=== PATIENT | female | born 1975 | race Hispanic/Latino ===

== ENCOUNTER 2024-05-07 23:19 | Inpatient (IN) | payer SELFPAY ==
[~2024-05-07] VITALS: Ht 160 cm; Wt 83.7 kg
[2024-05-07 23:50] LABS: BASOPHILS # (AUTO) 0.07 K/uL (0.00-0.20); BASOPHILS % (AUTO) 0.9 % (0.0-5.0); EOSINOPHILS # (AUTO) 0.17 K/uL (0.00-0.70); EOSINOPHILS % (AUTO) 2.2 % (0.0-8.0); HEMATOCRIT 39.1 % (36-48); IMMATURE GRANULOCYTE ABSOLUTE 0.03 K/uL (0-1); LYMPHOCYTES # (AUTO) 1.9 K/uL (1.0-4.8); LYMPHOCYTES % (AUTO) 24.4 % (21.0-51.0); MEAN CORPUSCULAR HEMOGLOBIN 27.2 pg (27.0-33.0); MEAN CORPUSCULAR HGB CONC 32.7 g/dL (32.0-36.0); MONOCYTES # (AUTO) 0.4 K/uL (0.1-1.0); MONOCYTES % (AUTO) 5.2 % (3.0-13.0); NEUTROPHILS # (AUTO) 5.3 K/uL (1.8-7.7); NEUTROPHILS % (AUTO) 66.9 % (40.0-77.0); PLATELET COUNT (AUTO) 342 K/uL (130-400); RED BLOOD CELL COUNT(AUTO) 4.71 MIL/uL (4.00-5.50); RED CELL DISTRIBUTION WIDTH 13.4 % (11.0-15.5); WHITE BLOOD COUNT (AUTO) 7.9 K/uL (4.8-10.8)
[2024-05-07 23:53] LABS: APPEARANCE,URINE CLEAR (CLEAR); BILIRUBIN,URINE NEGATIVE (NEGATIVE); COLOR,URINE LIGHT-YELLOW (YELLOW); GLUCOSE, URINE (UA) NEGATIVE (NEGATIVE); KETONES,URINE NEGATIVE (NEGATIVE); LEUKOCYTE ESTERASE ,URINE 25 Leu/uL (NEGATIVE); NITRATE,URINE NEGATIVE (NEGATIVE); OCCULT BLOOD,URINE NEGATIVE (NEGATIVE); PH,URINE 6.5 (5.0-8.0); PROTEIN,URINE NEGATIVE (NEGATIVE); UROBILINOGEN,URINE 0.2 mg/dL (0.2-1.0)
[2024-05-07 23:54] LABS: ADD UA MICROSCOPIC YES
[2024-05-07 23:57] LABS: BACTERIA,URINE FEW /HPF (None Seen); RBC,URINE 0-1 /HPF (0-1); SQUAMOUS EPITHELIAL CELL,UR FEW /HPF (0-2)
[2024-05-08] MEDS: ondanSETRON 4MG INJ IVP ONE (00:01)
[2024-05-08] MEDS: morPHINE 4 MG SYG IVP ONE (00:02)
[2024-05-08] MEDS: LACTATED RINGERS 1000ML 1,000 ML IV ONE (00:03)
[2024-05-08 00:04] LABS: CARBON DIOXIDE 28 mmol/L (21-32); CHLORIDE 103 mmol/L (101-111); CREATININE 0.6 mg/dL (0.5-1.0); GLOMERULAR FILTR. RATE CALC 110 mL/min (>90); GLUCOSE,RANDOM 95 mg/dL (70-105); POTASSIUM 3.9 mmol/L (3.5-5.1); SODIUM SERUM 134 mmol/L (136-145); UREA NITROGEN, BLOOD 5 mg/dL (7-18)
[2024-05-08 00:08] LABS: ALANINE AMINOTRANSFERASE 23 U/L (12-78); ALBUMIN 3.6 g/dL (3.5-5.0); ASPARTATE AMINOTRANSFERASE 22 U/L (10-37); BILIRUBIN,DIRECT < 0.1 mg/dL (0.0-0.3); BILIRUBIN,TOTAL 0.1 mg/dL (0.2-1.0); TOTAL PROTEIN, SERUM 7.3 g/dL (6.0-8.3)
--- NOTE | 2024-05-08 01:37 | ERN ---
General Chief Complaint: Abdominal Pain Stated Complaint: ABDOMINAL PAIN Time Seen by MD: 23:23 History of Present Illness Initial Comments Mrs. Asif is a 49-year-old female significant past medical history of morbid obesity who comes in today with a chief complaint of right upper quadrant pain. Patient reports that she has a history of gallstones. She reports that she had some fat greasy food prior to arrival. Patient reports the pain radiates to her back. Patient reports she has not had an appointment with a general surgeon for evaluation of her issues Allergies: Coded Allergies: No Known Drug Allergies (Unverified Allergy, Unknown, 12/07/23) Past Medical History Past Medical History: No Pertinent History Past Surgical History: Female( History) LMP: Apr 10, 2024 ROS Dictation Constitutional: Negative for fever,chills, and weight loss Eyes: Negative for injury, pain,redness, and discharge ENT: Negative for injury,pain or swelling Cardiovascular: Negative for chest pain, palpitations, and edema Respiratory: Negative for shortness of breath, cough, and wheezing, Abdomen/GI: Positive for abdominal pain Back: Negative for injury and pain : Negative for injury, bleeding and discharge MS/Extremity: Negative for injury and deformity Skin: Negative for rash, and discoloration Neuro: Negative for headache, weakness, numbness, tingling, and seizure Psych: Negative for suicide ideation, homicidal ideation, and hallucinations Physical Exam Physical Exam Dictation General: awake, alert, NAD Head/Face: Normocephalic, atraumatic Eyes: PERRL, EOMI, vision at baseline ENT: oral cavity clear, Neck: Trachea midline, supple, Cardiovascular: RRR, normal S1/S2, No MRGs, no JVD Respiratory: CTAB, no respiratory distress, No rales or wheezes Abdomen: Pain in the right upper quadrant Skin: Warm, dry, normal turgor, no rash MS/Extremity: Pulses equal, no cyanosis Neuro: COAx4, GCS 15, strength 5 Psych: Normal behavior, mood, and affect Results Laboratory and Microbiology Lab and Micro Result Laboratory Tests Test 05/07/24 23:38 White Blood Count 7.9 K/uL (4.8-10.8) Red Blood Count 4.71 MIL/uL (4.00-5.50) Hemoglobin 12.8 g/dL (12.0-16.0) Hematocrit 39.1 % (36-48) Mean Corpuscular Volume 83.0 fL (79-99) Mean Corpuscular Hemoglobin 27.2 pg (27.0-33.0) Mean Corpuscular Hemoglobin Concent 32.7 g/dL (32.0-36.0) Red Cell Distribution Width 13.4 % (11.0-15.5) Platelet Count 342 K/uL (130-400) Mean Platelet Volume 9.4 fL (7.5-10.5) Immature Granulocyte % (Auto) 0.4 % (0-1) Neutrophils (%) (Auto) 66.9 % (40.0-77.0) Lymphocytes (%) (Auto) 24.4 % (21.0-51.0) Monocytes (%) (Auto) 5.2 % (3.0-13.0) Eosinophils (%) (Auto) 2.2 % (0.0-8.0) Basophils (%) (Auto) 0.9 % (0.0-5.0) Neutrophils # (Auto) 5.3 K/uL (1.8-7.7) Lymphocytes # (Auto) 1.9 K/uL (1.0-4.8) Monocytes # (Auto) 0.4 K/uL (0.1-1.0) Eosinophils # (Auto) 0.17 K/uL (0.00-0.70) Basophils # (Auto) 0.07 K/uL (0.00-0.20) Absolute Immature Granulocyte (auto 0.03 K/uL (0-1) Nucleated Red Blood Cells 0.0 % (0.0-0.19) Urine Color LIGHT-YELLOW (YELLOW) Urine Appearance CLEAR (CLEAR) Urine pH 6.5 (5.0-8.0) Urine Specific [place] 1.008 (1.001-1.031) Urine Protein NEGATIVE mg/dL (NEGATIVE) Urine Glucose (UA) NEGATIVE mg/dL (NEGATIVE) Urine Ketones NEGATIVE mg/dL (NEGATIVE) Urine Occult Blood NEGATIVE (NEGATIVE) Urine Nitrate NEGATIVE (NEGATIVE) Urine Bilirubin NEGATIVE mg/dL (NEGATIVE) Urine Urobilinogen 0.2 mg/dL (0.2-1.0) Urine Leukocyte Esterase 25 Opal/uL (NEGATIVE) H Urine RBC 0-1 /HPF (0-1) Urine WBC 6-10 /HPF (0-1) H Urine Squamous Epithelial Cells FEW /HPF (0-2) Urine Bacteria FEW /HPF (None Seen) Urine Hyaline Casts 2-5 /LPF (0-1 /LPF) H Sodium Level 134 mmol/L (136-145) L Potassium Level 3.9 mmol/L (3.5-5.1) Chloride Level 103 mmol/L (101-111) Carbon Dioxide Level 28 mmol/L (21-32) Blood Urea Nitrogen 5 mg/dL (7-18) L Creatinine 0.6 mg/dL (0.5-1.0) Glomerular Filtration Rate Calc 110 mL/min (>90) Random Glucose 95 mg/dL (70-105) Total Calcium 8.8 mg/dL (8.5-10.1) Total Bilirubin 0.1 mg/dL (0.2-1.0) L Direct Bilirubin < 0.1 mg/dL (0.0-0.3) Aspartate Amino Transf (AST/SGOT) 22 U/L (10-37) Alanine Aminotransferase (ALT/SGPT) 23 U/L (12-78) Alkaline Phosphatase 109 U/L (50-136) Total Protein 7.3 g/dL (6.0-8.3) Albumin 3.6 g/dL (3.5-5.0) Amylase Level 63 U/L (25-115) Lipase 49 U/L (16-77) MDM Patient's ultrasound does show moderate suspicion for cholecystitis. Patient will be admitted for further evaluation and care ED Course Orders Procedure Category Date Status Time Vital Signs Per CPOE 05/07/24 Transmitted Routine 23:25 Saline Lock Iv CPOE 05/07/24 Transmitted 23:25 Cbc With Differential LAB 05/07/24 Complete 23:25 Lipase LAB 05/07/24 Complete 23:25 Urinalysis Profile LAB 05/07/24 Complete 23:25 Basic Metabolic Panel LAB 05/07/24 Complete 23:25 Hepatic Function Panel LAB 05/07/24 Complete 23:25 Amylase LAB 05/07/24 Complete 23:55 Us Abdominal Ruq\Ltd US 05/07/24 Taken 23:55 Lactated Ringers PHA 05/08/24 Complete 1000ml (Lactated 00:00 Morphine 4mg Syg PHA 05/08/24 Complete (Morphine 4mg Syg) 00:00 Ondansetron 4mg Inj PHA 05/08/24 Complete (Zofran 4mg Inj) 00:00 Chest 1vw RAD 05/07/24 Taken 23:55 Culture Urine SUZANNE 05/07/24 In Process 23:58 Current Medications Medications (Trade) Dose Ordered Sig/Peace Route PRN Reason Start Time Stop Time Status Last Admin Dose Admin Lactated Ringer's 1,000 ml @ 0 mls/hr ONCE ONCE IV 05/08/24 00:00 05/08/24 00:01 DC 05/08/24 00:03 Morphine Sulfate (morPHINE 4MG SYG) 4 mg ONCE ONCE IVP 05/08/24 00:00 05/08/24 00:01 DC 05/08/24 00:02 Ondansetron HCl (zoFRAN 4MG INJ) 4 mg ONCE ONCE IVP 05/08/24 00:00 05/08/24 00:01 DC 05/08/24 00:01 Vital Signs Date Time Temp Pulse Resp B/P (MAP) Pulse Ox O2 Delivery O2 Flow Rate FiO2 05/08/24 00:12 98.6 72 18 118/71 98 Room Air* 0 21 05/07/24 23:41 98.4 74 18 134/74 98 Room Air* 0 05/07/24 23:20 97.9 78 16 125/83 99 Room Air 0 DX & DISP Disposition: Inpatient Departure Impression: Primary Impression: Acute cholecystitis Condition: Stable Referrals: SELF,REFERRAL (PCP) PILO COELHO MD May 08, 2024 01:37
[2024-05-08] MEDS ORDERED: hydroMORPHone 1 MG INJ IVP PRN (03:30)
[2024-05-08] MEDS ORDERED: acetaMINOPHEN 650 MG SUPPOSITORY RC PRN (03:30)
[2024-05-08] MEDS ORDERED: hydrALAZine 20MG/ML VIAL IV PRN (03:30)
[2024-05-08] MEDS ORDERED: doCUSate SODIUM 100 MG CAP PO PRN (03:30)
[2024-05-08] MEDS ORDERED: morPHINE 2 MG SYG IVP PRN (03:30)
[2024-05-08] MEDS ORDERED: LACTULOSE 20 GM/30 ML UDCUP PO PRN (03:30)
[2024-05-08] MEDS: ZOSYN 3.375GM +NS 50ML IV ONE (03:34)
[2024-05-08] MEDS ORDERED: hydroMORPHone 0.5 MG SYG (0.5MG/0.5ML) IVP PRN (04:00)
[2024-05-08] MEDS ORDERED: ketOROlac 30MG VIAL (30MG/ML) IM PRN (04:00)
--- NOTE | 2024-05-08 04:04 | HP ---
[facility] HISTORY AND PHYSICAL Date of Service: May 08, 2024 Time of Service: 04:04 No PCP ATTENDING/SUPERVISING PHYSICIANS: DR. Chamberlain AND DR. Ho[place] Everett HISTORY OF PRESENT ILLNESS: Mrs. Asif is a 49-year-old female significant past medical history of obesity and cholelithiasis who presented to [facility] ED for evaluation of of right upper quadrant pain onset last night. She reports that she had some fat greasy food prior to arrival and started with severe epigastric pain that radiates to her back. The patient reports that she took chamomile with the room improvement of the pain. Patient reports she has not had an appointment with a general surgeon for evaluation of her issues. CBC within normal limits. Remarkable lab results: Sodium 134. UA: Positive for leuk EST. ED physician reports patient's ultrasound does show moderate suspicion for cholecystitis and would like patient admitted for further evaluation and care. In ED patient received LR1 L bolus, morphine4 mg IV, Zofran4 mg IV, Zosyn 3.375. I went to assess patient at bedside. Patient appeared comfortable and in no distress. Patient reports improved pain with the pain medication that was given. I informed patient of labs, diagnosis, and plan of care. The patient verbalizes understanding and is in agreement with the plan. Plan and assessment are listed below. REVIEW OF SYSTEMS 12-point ROS reviewed with patient. All pertinent positives mentioned above. Otherwise negative, nonpertinent, or noncontributory. PAST MEDICAL HISTORY: Obesity, cholelithiasis PAST SURGICAL HISTORY: PAST SOCIAL HISTORY: Denies alcohol, tobacco, illicit drug use FAMILY HISTORY: Noncontributory Coded Allergies: No Known Drug Allergies (Unverified Allergy, Unknown, 12/07/23) PHYSICAL EXAM GENERAL APPEARANCE: The patient is awake, alert, and oriented, in no acute cardiopulmonary distress. NEUROLOGICAL: Cranial nerves II-XII grossly intact. Motor is 5/5 in bilateral upper and lower extremities proximal to distal. No sensory deficits. HEENT: Face is symmetric. Pupils are equal and reactive. Extraocular movements are intact. NECK: Supple. No JVD. No thyromegaly. No submental, submandibular, pre- /postauricular, occipital or supraclavicular lymphadenopathy. CHEST: Normal chest expansion. No Telemetry. LUNGS: Absence of any rales, rhonchi or any wheezing. CARDIOVASCULAR: Regular. S1 and S2 normal. No appreciable rubs, murmurs or gallops. ABDOMEN: Soft, nontender, and nondistended. There is no rebound, voluntary guarding, or rigidity. : Deferred. No Chavez. EXTREMITIES: Non-edematous and not cyanotic. No clubbing. Good capillary refill. SKIN: No skin breakdown. Vital Sign (Last 24 Hours) 05/08/24 00:12 Temp 98.6 Pulse 72 Resp 18 B/P (MAP) 118/71 Pulse Ox 98 O2 Delivery Room Air* O2 Flow Rate 0 FiO2 21 LABS: Laboratory: Test 05/07/24 23:38 Range/Units White Blood Count 7.9 4.8-10.8 K/uL Red Blood Count 4.71 4.00-5.50 MIL/uL Hemoglobin 12.8 12.0-16.0 g/dL Hematocrit 39.1 36-48 % Mean Corpuscular Volume 83.0 79-99 fL Mean Corpuscular Hemoglobin 27.2 27.0-33.0 pg Mean Corpuscular Hemoglobin Concent 32.7 32.0-36.0 g/dL Red Cell Distribution Width 13.4 11.0-15.5 % Platelet Count 342 130-400 K/uL Mean Platelet Volume 9.4 7.5-10.5 fL Immature Granulocyte % (Auto) 0.4 0-1 % Neutrophils (%) (Auto) 66.9 40.0-77.0 % Lymphocytes (%) (Auto) 24.4 21.0-51.0 % Monocytes (%) (Auto) 5.2 3.0-13.0 % Eosinophils (%) (Auto) 2.2 0.0-8.0 % Basophils (%) (Auto) 0.9 0.0-5.0 % Neutrophils # (Auto) 5.3 1.8-7.7 K/uL Lymphocytes # (Auto) 1.9 1.0-4.8 K/uL Monocytes # (Auto) 0.4 0.1-1.0 K/uL Eosinophils # (Auto) 0.17 0.00-0.70 K/uL Basophils # (Auto) 0.07 0.00-0.20 K/uL Absolute Immature Granulocyte (auto 0.03 0-1 K/uL Nucleated Red Blood Cells 0.0 0.0-0.19 % Urine Color LIGHT-YELLOW YELLOW Urine Appearance CLEAR CLEAR Urine pH 6.5 5.0-8.0 Urine Specific [place] 1.008 1.001-1.031 Urine Protein NEGATIVE NEGATIVE mg/dL Urine Glucose (UA) NEGATIVE NEGATIVE mg/dL Urine Ketones NEGATIVE NEGATIVE mg/dL Urine Occult Blood NEGATIVE NEGATIVE Urine Nitrate NEGATIVE NEGATIVE Urine Bilirubin NEGATIVE NEGATIVE mg/dL Urine Urobilinogen 0.2 0.2-1.0 mg/dL Urine Leukocyte Esterase 25 H NEGATIVE Opal/uL Urine RBC 0-1 0-1 /HPF Urine WBC 6-10 H 0-1 /HPF Urine Squamous Epithelial Cells FEW 0-2 /HPF Urine Bacteria FEW None Seen /HPF Urine Hyaline Casts 2-5 H 0-1 /LPF /LPF Sodium Level 134 L 136-145 mmol/L Potassium Level 3.9 3.5-5.1 mmol/L Chloride Level 103 101-111 mmol/L Carbon Dioxide Level 28 21-32 mmol/L Blood Urea Nitrogen 5 L 7-18 mg/dL Creatinine 0.6 0.5-1.0 mg/dL Glomerular Filtration Rate Calc 110 >90 mL/min Random Glucose 95 70-105 mg/dL Total Calcium 8.8 8.5-10.1 mg/dL Total Bilirubin 0.1 L 0.2-1.0 mg/dL Direct Bilirubin < 0.1 0.0-0.3 mg/dL Aspartate Amino Transf (AST/SGOT) 22 10-37 U/L Alanine Aminotransferase (ALT/SGPT) 23 12-78 U/L Alkaline Phosphatase 109 50-136 U/L Total Protein 7.3 6.0-8.3 g/dL Albumin 3.6 3.5-5.0 g/dL Amylase Level 63 25-115 U/L Lipase 49 16-77 U/L Current Medications Medications (Trade) Dose Ordered Sig/Peace Route PRN Reason Start Time Stop Time Status Last Admin Dose Admin Acetaminophen (TYLenol 325MG TAB) 650 mg Q6H PRN PO FEVER/MILD PAIN LEVEL 1-3 05/08/24 03:30 06/07/24 03:29 Acetaminophen (TYLenol 650MG SUPPOSITORY) 650 mg Q6H PRN RC FEVER / MILD PAIN 1-3 IF NPO 05/08/24 03:30 06/07/24 03:29 Docusate Sodium (COLace 100MG CAP) 100 mg BID PRN PO c 05/08/24 03:30 06/07/24 03:29 Hydralazine HCl (APRESOLine 20MG INJ) 10 mg Q2H PRN IV SBP GREATER THAN 160 05/08/24 03:30 06/07/24 03:29 Hydromorphone HCl (DiLAUDid 0.5MG INJ) 0.5 mg Q4H PRN IVP SEVERE PAIN (7-10) 05/08/24 04:00 05/13/24 03:59 Hydromorphone HCl (DiLAUDid 1MG INJ) 0.5 mg Q4H PRN IVP SEVERE PAIN (7-10) 05/08/24 03:30 05/13/24 03:29 Insulin Human Regular (humuLIN R 100 UNIT/ML 3ML) INSULIN SLIDING SCAL... ACHS SQ 05/08/24 07:30 06/07/24 07:29 Ketorolac Tromethamine (toRADol) 30 mg Q6H PRN IM SEVERE PAIN (7-10) 05/08/24 04:00 05/13/24 03:59 Lactulose (Constulose 20gm/ 30ml Udcup) 20 gm Q6H PRN PO CONSTIPATION 05/08/24 03:30 06/07/24 03:29 Morphine Sulfate (morPHINE 2MG SYG) 2 mg Q4H PRN IVP MODERATE PAIN (4-6) 05/08/24 03:30 05/15/24 03:29 Ondansetron HCl (zoFRAN 4MG INJ) 4 mg Q6H PRN IVP NAUSEA/VOMITING 05/08/24 03:30 06/07/24 03:29 Sodium Chloride 1,000 ml @ 75 mls/hr [id number] IV 05/08/24 03:30 06/07/24 03:29 Temazepam (restORIL 15 MG CAP) 15 mg HS PRN PO INSOMNIA/SLEEP 05/08/24 03:30 06/07/24 03:29 DIAGNOSTICS / RADIOLOGY: [ ] ASSESSMENT: Acute cholecystitis, POA Acute abdominal pain, POA Acute complicated cystitis, POA Hyponatremia, POA Obesity, BMI 28.4 History of cholelithiasis PLAN: Admit to medical/ surgical floor. Consulted Dr. [place], general surgeon for dx of cholecystis. Keep NPO. Gentle IV hydration. Zosyn 3.375 mg IV Q 8hours. P.r.n. medications for: Pain management, nausea, vomiting, constipation, hypertension. Monitor renal and liver function. Monitor electrolytes and treat accordingly. Glucometer checks a.c. and HS with insulin regular sliding scale. Blood pressure checks every 4 hours and as needed. Reconcile home medications once available. DVT and GI prophylaxis: SCDs and Protonix. ADVANCED CARE PLANNING 1. Which of the following were discussed? Hospice Care - No Therapeutic options - Yes Advance Directives - No Other discussions - 2. Discussed with who? Patient 3. Voluntary nature of this service was explained to the patient? Yes 4. Amount of time spent - _ over 35 minute 5. Reviewed by Physician? (if this service was performed by NPP) Yes Patient seen and examined by me. Agree with note by FLOAT REMOVER SEE ADDITIONAL ORDERS PER CHART DISCUSSED WITH NURSING STAFF AVILA LEES May 08, 2024 04:04
[2024-05-08 04:40] VITALS: BP 147/83; PULSE 69; RESP 20; TEMP 99
[2024-05-08] MEDS ORDERED: MAGNESIUM 2GM PREMIX 50ML 50 ML IV PRN (06:30)
[2024-05-08] MEDS ORDERED: PoTASSium chloRIDE 10MEQ/100ML 100 ML IV PRN (06:30)
[2024-05-08] MEDS ORDERED: GLUCAGON 1MG KIT 1 MG ML IM PRN (06:30)
[2024-05-08] MEDS: INSULIN humuLIN R 100 UNIT/ML 3ML SQ SCH (06:56)
[2024-05-08] MEDS: ondanSETRON 4MG INJ IVP PRN (07:03)
[2024-05-08 07:40] VITALS: BP 141/81; PULSE 74; RESP 20; TEMP 97.9; O2SAT 98
--- NOTE | 2024-05-08 08:23 | HMCIMG ---
US ABDOMINAL RUQ\E\LTD HISTORY: Adominal Pain COMPARISON: None FINDINGS: There is mild fatty infiltration of the liver. There are no focal liver masses. The liver is mildly enlarged at 18 cm.There are stones present within the gallbladder. There is no wall thickening or edema. Common duct is normal at 3 mm.. Right kidney is normal with no evidence of mass, hydronephrosis or stone.The pancreas appears normal as well. IMPRESSION: 1. Cholelithiasis without evidence of acute cholecystitis. 2. Mild to moderate fatty infiltration of the liver which is enlarged at 18 cm.
[2024-05-08] MEDS: 0.9%NACL 1000ML 1,000 ML IV SCH (08:46)
[2024-05-08] MEDS: PANTOPrazole 40 MG/VIAL IVP SCH (08:47)
[2024-05-08] MEDS: acetaMINOPHEN 325 MG TAB PO PRN (08:47)
--- NOTE | 2024-05-08 09:30 | HMCIMG ---
CHEST 1VW REASON: SOB COMPARISON: None. FINDINGS: Single view of the chest was obtained. Lungs are clear. Heart size is normal. There is no pulmonary vascular congestion. Mediastinum and bony thorax appear unremarkable. IMPRESSION: 1. Normal single view chest x-ray.
--- NOTE | 2024-05-08 10:34 | PN ---
[facility] PROGRESS NOTE Date of Service: May 08, 2024 Time of Service: 10:16 SUBJECTIVE: This 49-year-old female patient with significant past medical history of obesity and cholelithiasis who presented [place] [facility] [place] evaluation of of right upper quadrant pain onset last night. She reports that she had some fat greasy food prior to arrival and started with severe epigastric pain that radiates to her back. The patient reports that she took chamomile with the room improvement of the pain. Patient reports she has not had an appointment with a general surgeon for evaluation of her issues. CBC within normal limits. Remarkable lab results: Sodium 134. UA: Positive for leuk EST. ED physician reports patient's ultrasound does show moderate suspicion for cholecystitis and would like patient admitted for further evaluation and care. In ED patient received LR1 L bolus, morphine4 mg IV, Zofran4 mg IV, Zosyn 3.375. 05/08/24 The patient is seen and evaluated by me this morning, she is lying comf ortably in bed. She is NPO today. She is complaining of right upper quadrant abdominal pain and nausea. She was given zofran for nausea in the morning. Her vitals are stable. She has been afebrile since admission. CBC, CMP unremarkable and UA is positive for leukocyte esterase. Surgery was consulted and Dr. Rudolph ordered HIDA scan. REVIEW OF SYSTEMS Constitutional: Negative for fever,chills, and weight loss Eyes: Negative for injury, pain,redness, and discharge ENT: Negative for injury,pain or swelling Cardiovascular: Negative for chest pain, palpitations, and edema Respiratory: Negative for shortness of breath, cough, and wheezing, Abdomen/GI: Positive for abdominal pain Back: Negative for injury and pain : Negative for injury, bleeding and discharge MS/Extremity: Negative for injury and deformity Skin: Negative for rash, and discoloration Neuro: Negative for headache, weakness, numbness, tingling, and seizure Psych: Negative for suicide ideation, homicidal ideation, and hallucinations PHYSICAL EXAM GENERAL APPEARANCE: The patient is awake, alert, and oriented, in no acute cardiopulmonary distress. NEUROLOGICAL: Cranial nerves II-XII grossly intact. Motor is 5/5 in bilateral upper and lower extremities proximal to distal. No sensory deficits. HEENT: Face is symmetric. Pupils are equal and reactive. Extraocular movements are intact. NECK: Supple. No JVD. No thyromegaly. No submental, submandibular, pre- /postauricular, occipital or supraclavicular lymphadenopathy. CHEST: Normal chest expansion. No Telemetry. LUNGS: Absence of any rales, rhonchi or any wheezing. CARDIOVASCULAR: Regular. S1 and S2 normal. No appreciable rubs, murmurs or gallops. ABDOMEN: Soft, nontender, and nondistended. There is no rebound, voluntary guarding, or rigidity. : Deferred. No Chavez. EXTREMITIES: Non-edematous and not cyanotic. No clubbing. Good capillary refill. SKIN: No skin breakdown. Vital Signs (last 8hr) Date Time Temp Pulse Resp B/P (MAP) Pulse Ox O2 Delivery O2 Flow Rate FiO2 05/08/24 07:40 97.9 74 20 141/81 98 Room Air 21 05/08/24 07:40 98 Room Air* 0 21 05/08/24 05:00 Room Air* 0 21 05/08/24 04:40 99.0 69 20 147/83 99 Room Air LABS: Laboratory: Test 05/08/24 04:40 05/07/24 23:38 Range/Units Whole Blood Glucose 107 70-110 MG/DL White Blood Count 7.9 4.8-10.8 K/uL Red Blood Count 4.71 4.00-5.50 MIL/uL Hemoglobin 12.8 12.0-16.0 g/dL Hematocrit 39.1 36-48 % Mean Corpuscular Volume 83.0 79-99 fL Mean Corpuscular Hemoglobin 27.2 27.0-33.0 pg Mean Corpuscular Hemoglobin Concent 32.7 32.0-36.0 g/dL Red Cell Distribution Width 13.4 11.0-15.5 % Platelet Count 342 130-400 K/uL Mean Platelet Volume 9.4 7.5-10.5 fL Immature Granulocyte % (Auto) 0.4 0-1 % Neutrophils (%) (Auto) 66.9 40.0-77.0 % Lymphocytes (%) (Auto) 24.4 21.0-51.0 % Monocytes (%) (Auto) 5.2 3.0-13.0 % Eosinophils (%) (Auto) 2.2 0.0-8.0 % Basophils (%) (Auto) 0.9 0.0-5.0 % Neutrophils # (Auto) 5.3 1.8-7.7 K/uL Lymphocytes # (Auto) 1.9 1.0-4.8 K/uL Monocytes # (Auto) 0.4 0.1-1.0 K/uL Eosinophils # (Auto) 0.17 0.00-0.70 K/uL Basophils # (Auto) 0.07 0.00-0.20 K/uL Absolute Immature Granulocyte (auto 0.03 0-1 K/uL Nucleated Red Blood Cells 0.0 0.0-0.19 % Urine Color LIGHT-YELLOW YELLOW Urine Appearance CLEAR CLEAR Urine pH 6.5 5.0-8.0 Urine Specific [place] 1.008 1.001-1.031 Urine Protein NEGATIVE NEGATIVE mg/dL Urine Glucose (UA) NEGATIVE NEGATIVE mg/dL Urine Ketones NEGATIVE NEGATIVE mg/dL Urine Occult Blood NEGATIVE NEGATIVE Urine Nitrate NEGATIVE NEGATIVE Urine Bilirubin NEGATIVE NEGATIVE mg/dL Urine Urobilinogen 0.2 0.2-1.0 mg/dL Urine Leukocyte Esterase 25 H NEGATIVE Opal/uL Urine RBC 0-1 0-1 /HPF Urine WBC 6-10 H 0-1 /HPF Urine Squamous Epithelial Cells FEW 0-2 /HPF Urine Bacteria FEW None Seen /HPF Urine Hyaline Casts 2-5 H 0-1 /LPF /LPF Sodium Level 134 L 136-145 mmol/L Potassium Level 3.9 3.5-5.1 mmol/L Chloride Level 103 101-111 mmol/L Carbon Dioxide Level 28 21-32 mmol/L Blood Urea Nitrogen 5 L 7-18 mg/dL Creatinine 0.6 0.5-1.0 mg/dL Glomerular Filtration Rate Calc 110 >90 mL/min Random Glucose 95 70-105 mg/dL Total Calcium 8.8 8.5-10.1 mg/dL Total Bilirubin 0.1 L 0.2-1.0 mg/dL Direct Bilirubin < 0.1 0.0-0.3 mg/dL Aspartate Amino Transf (AST/SGOT) 22 10-37 U/L Alanine Aminotransferase (ALT/SGPT) 23 12-78 U/L Alkaline Phosphatase 109 50-136 U/L Total Protein 7.3 6.0-8.3 g/dL Albumin 3.6 3.5-5.0 g/dL Amylase Level 63 25-115 U/L Lipase 49 16-77 U/L Current Medications Medications (Trade) Dose Ordered Sig/Peace Route PRN Reason Start Time Stop Time Status Last Admin Dose Admin Acetaminophen (TYLenol 325MG TAB) 650 mg Q6H PRN PO FEVER/MILD PAIN LEVEL 1-3 05/08/24 03:30 06/07/24 03:29 05/08/24 08:47 650 MG Acetaminophen (TYLenol 650MG SUPPOSITORY) 650 mg Q6H PRN RC FEVER / MILD PAIN 1-3 IF NPO 05/08/24 03:30 06/07/24 03:29 Dextrose (D50w) 50 ml AD PRN IV HYPOGLYCEMIA PROTOCOL 05/08/24 06:30 06/07/24 06:29 Docusate Sodium (COLace 100MG CAP) 100 mg BID PRN PO c 05/08/24 03:30 06/07/24 03:29 Glucagon (Glucagon 1mg Kit) 1 mg AD PRN IM HYPOGLYCEMIA PROTOCOL 05/08/24 06:30 06/07/24 06:29 Hydralazine HCl (APRESOLine 20MG INJ) 10 mg Q2H PRN IV SBP GREATER THAN 160 05/08/24 03:30 06/07/24 03:29 Hydromorphone HCl (DiLAUDid 0.5MG INJ) 0.5 mg Q4H PRN IVP SEVERE PAIN (7-10) 05/08/24 04:00 05/13/24 03:59 Hydromorphone HCl (DiLAUDid 1MG INJ) 0.5 mg Q4H PRN IVP SEVERE PAIN (7-10) 05/08/24 03:30 05/13/24 03:29 Insulin Human Regular (humuLIN R 100 UNIT/ML 3ML) INSULIN SLIDING SCAL... ACHS SQ 05/08/24 07:30 06/07/24 07:29 Ketorolac Tromethamine (toRADol) 30 mg Q6H PRN IM SEVERE PAIN (7-10) 05/08/24 04:00 05/13/24 03:59 Lactulose (Constulose 20gm/ 30ml Udcup) 20 gm Q6H PRN PO CONSTIPATION 05/08/24 03:30 06/07/24 03:29 Magnesium Sulfate 50 ml @ 0 mls/hr PROTOCOL PRN IV MAGNESIUM PROTOCOL 05/08/24 06:30 06/07/24 06:29 Morphine Sulfate (morPHINE 2MG SYG) 2 mg Q4H PRN IVP MODERATE PAIN (4-6) 05/08/24 03:30 05/15/24 03:29 Ondansetron HCl (zoFRAN 4MG INJ) 4 mg Q6H PRN IVP NAUSEA/VOMITING 05/08/24 03:30 06/07/24 03:29 05/08/24 07:03 4 MG Pantoprazole Sodium (PROTonix 40MG INJ) 40 mg BID IVP 05/08/24 09:00 06/07/24 08:59 05/08/24 08:47 40 MG Piperacillin Sod/ Tazobactam Sod (Zosyn 3.375gm+NS 50ml) 3.375 gm Q8H IVPB 05/08/24 11:00 05/18/24 10:59 Potassium Chloride 100 ml @ 100 mls/hr AD PRN IV POTASSIUM PROTOCOL 05/08/24 06:30 06/07/24 06:29 Sodium Chloride 1,000 ml @ 75 mls/hr [id number] IV 05/08/24 03:30 06/07/24 03:29 05/08/24 08:46 75 MLS/HR Sodium Chloride (NS 50ml) 50 ml AD IV 05/08/24 11:00 05/08/24 06:07 DC Temazepam (restORIL 15 MG CAP) 15 mg HS PRN PO INSOMNIA/SLEEP 05/08/24 03:30 06/07/24 03:29 DIAGNOSTICS / RADIOLOGY: [place] [address] IMAGING REPORT Signed PATIENT: WANG RAMOS MR#: [id number] : 1975 SEX: F AGE: 49 LOCATION: 4DH ORDER 56 STATUS: ADM IN REPORT#: [id number] SERVICE 54 REASON: SOB ORDERING PHYSICIAN: PILO COELHO MD PROCEDURE: CXR1VW - CHEST 1VW CHEST 1VW REASON: SOB COMPARISON: None. FINDINGS: Single view of the chest was obtained. Lungs are clear. Heart size is normal. There is no pulmonary vascular congestion. Mediastinum and bony thorax appear unremarkable. IMPRESSION: 1. Normal single view chest x-ray. DICTATED BY: JOSELIN QUACH MD DATE: 05/08/24927 ELECTRONICALLY SIGNED BY: JOSELIN QUACH MD DATE: 05/08/24929 [facility] [address] [place], [place] [id number] IMAGING REPORT Signed PATIENT: WANG RAMOS MR#: [id number] : 1975 SEX: F AGE: 49 LOCATION: 4DH ORDER 56 STATUS: ADM IN [facility] REPORT#: [id number] SERVICE 54 REASON: Adominal Pain ORDERING PHYSICIAN: PILO COELHO MD PROCEDURE: [id number] - US ABDOMINAL RUQ\LTD US ABDOMINAL RUQ\E\LTD HISTORY: Adominal Pain COMPARISON: None FINDINGS: There is mild fatty infiltration of the liver. There are no focal liver masses. The liver is mildly enlarged at 18 cm.There are stones present within the gallbladder. There is no wall thickening or edema. Common duct is normal at 3 mm.. Right kidney is normal with no evidence of mass, hydronephrosis or stone.The pancreas appears normal as well. IMPRESSION: 1. Cholelithiasis without evidence of acute cholecystitis. 2. Mild to moderate fatty infiltration of the liver which is enlarged at 18 cm. DICTATED BY: JOSELIN QUACH MD DATE: 05/08/24817 ELECTRONICALLY SIGNED BY: JOSELIN QUACH MD DATE: 05/08/24822 ASSESSMENT: Acute cholecystitis, POA Acute abdominal pain, POA Acute complicated cystitis, POA Hyponatremia, improve Obesity, BMI 28.4 History of cholelithiasis PLAN: Continue to monitor patient on medical/surgical floor. Acute cholecystitis, POA Acute abdominal pain, POA Patient to remain NPO. Surgeon Dr. Rudolph is consulted and ordered HIDA scan. Continue 0.9% NaCl @ 75 ml/hrs. Abdominal US showed multiple gallstones in gallbladder. Continue Zosyn 3.375 mg IV Q 8hours. Glucometer checks a.c. and HS with insulin regular sliding scale. P.r.n. medications for: Pain management, nausea, vomiting, constipation, hypertension. Glucometer checks a.c. and HS with insulin regular sliding scale. Blood pressure checks every 4 hours and as needed. Reconcile home medications once available. DVT and GI prophylaxis: SCDs and Protonix. ATTESTATION BY PHYSICIAN I have seen and examined the patient. I reviewed the documentation, medical decision making, and treatment plan as noted by the resident provider above. I agree with the findings and plan of care. Citlalli Everett MD, KRUPALI P MD May 08, 2024 10:34
[2024-05-08] MEDS ORDERED: 0.9%NACL 50ML IV SCH (11:00)
[2024-05-08 11:46] VITALS: BP 99/61; PULSE 88; RESP 20; TEMP 98.3
[2024-05-08] MEDS: ZOSYN 3.375GM +NS 50ML IVPB SCH (12:06)
--- NOTE | 2024-05-08 16:47 | CONS ---
GENERAL SURGERY CONSULTATION NOTE DATE OF CONSULTATION: May 08, 2024 TIME OF CONSULTATION: 16:47 CONSULTING SERVICE: Azalea Bruno MD REQUESTING PHYSICAIN: [ ] REASON FOR CONSULTATION: [ ] Abdominal pain HISTORY OF PRESENT ILLNESS: [ ] 49-year-old lady who presented with abdominal pain Pain started yesterday with nausea and bloatedness No diarrhea or constipation She has had similar episode in the past PAST MEDICAL HISTORY: [ ] Hypertension PAST SURGICAL HISTORY: [ ] Non FAMILY HISTORY: [ ] Positive for diabetes and hypertension SOCIAL HISTORY: [ ] No smoking No alcohol Current Medications Medications (Trade) Dose Ordered Sig/Peace Route Start Time Stop Time Status Last Admin Dose Admin Insulin Human Regular (humuLIN R 100 UNIT/ML 3ML) INSULIN SLIDING SCAL... ACHS SQ 05/08/24 07:30 06/07/24 07:29 Pantoprazole Sodium (PROTonix 40MG INJ) 40 mg BID IVP 05/08/24 09:00 06/07/24 08:59 05/08/24 08:47 40 MG Piperacillin Sod/ Tazobactam Sod (Zosyn 3.375gm+NS 50ml) 3.375 gm Q8H IVPB 05/08/24 11:00 05/18/24 10:59 05/08/24 12:06 3.375 GM Sodium Chloride 1,000 ml @ 75 mls/hr [id number] IV 05/08/24 03:30 06/07/24 03:29 05/08/24 08:46 75 MLS/HR Sodium Chloride (NS 50ml) 50 ml AD IV 05/08/24 11:00 05/08/24 06:07 DC Allergies: Coded Allergies: No Known Drug Allergies (Unverified Allergy, Unknown, 12/07/23) REVIEW OF SYSTEMS: STERILE TECH: [Denies headaches or blurring of vision.] RESP: [No cough, chest pain or SOB.] CVS: [No palpitaions.] GI: [abdominal pain with nausea and vomiting, no diarrhea or constipation.] MOLLY: [No dysuria or hematuria.] Musculoskeletal: [No swelling or joint pain.] BACK: [No pain or swelling.] All other systems are reviewed and essentially negative pertinent positives in HPI. PHYSICAL EXAMINATION: GENERAL: [Patient is lying comfortably in bed, not in any obvious distress.] HEAD: [Normal with no signs of head trauma.] EYES: [Not pale not jaundiced afebrile to touch.] ENT: [ Normal.] NECK: [Supple,no tenderness,no lymphadenopathy,no masses,no thyromegaly ,no bruits, no JVD.] LUNGS: [Clear breath sounds bilaterally. No wheezes, rales, or rhonchi.] HEART: [Regular rate and rhythm. Normal S1 and S2, without murmurs, rub or gallop.] VASC: [No edema. Peripheral pulses normal and equal in all extremities.] ABD: [Bowel sounds present,soft, nontender, no masses, no organomegaly.] : [Normal, no suprapubic tenderness.] LYMPH: [No lymphadenopathy noted.] EXT: [ Warm soft, non tender.] SKIN: [ No rashes or lesions.] NEURO: [ Awake Alert and oriented x3.] Vital Signs (last 8hr) Date Time Temp Pulse Resp B/P (MAP) Pulse Ox O2 Delivery O2 Flow Rate FiO2 05/08/24 11:46 98.2 88 20 99/61 99 Room Air 21 LABORATORY: [ ] Hematology Labs: Test 05/07/24 23:38 Range/Units White Blood Count 7.9 4.8-10.8 K/uL Red Blood Count 4.71 4.00-5.50 MIL/uL Hemoglobin 12.8 12.0-16.0 g/dL Hematocrit 39.1 36-48 % Mean Corpuscular Volume 83.0 79-99 fL Mean Corpuscular Hemoglobin 27.2 27.0-33.0 pg Mean Corpuscular Hemoglobin Concent 32.7 32.0-36.0 g/dL Red Cell Distribution Width 13.4 11.0-15.5 % Platelet Count 342 130-400 K/uL Mean Platelet Volume 9.4 7.5-10.5 fL Immature Granulocyte % (Auto) 0.4 0-1 % Neutrophils (%) (Auto) 66.9 40.0-77.0 % Lymphocytes (%) (Auto) 24.4 21.0-51.0 % Monocytes (%) (Auto) 5.2 3.0-13.0 % Eosinophils (%) (Auto) 2.2 0.0-8.0 % Basophils (%) (Auto) 0.9 0.0-5.0 % Neutrophils # (Auto) 5.3 1.8-7.7 K/uL Lymphocytes # (Auto) 1.9 1.0-4.8 K/uL Monocytes # (Auto) 0.4 0.1-1.0 K/uL Eosinophils # (Auto) 0.17 0.00-0.70 K/uL Basophils # (Auto) 0.07 0.00-0.20 K/uL Absolute Immature Granulocyte (auto 0.03 0-1 K/uL Nucleated Red Blood Cells 0.0 0.0-0.19 % Chemistry Labs: Test 05/08/24 11:13 05/07/24 23:38 Range/Units Whole Blood Glucose 114 H 70-110 MG/DL Sodium Level 134 L 136-145 mmol/L Potassium Level 3.9 3.5-5.1 mmol/L Chloride Level 103 101-111 mmol/L Carbon Dioxide Level 28 21-32 mmol/L Blood Urea Nitrogen 5 L 7-18 mg/dL Creatinine 0.6 0.5-1.0 mg/dL Glomerular Filtration Rate Calc 110 >90 mL/min Random Glucose 95 70-105 mg/dL Total Calcium 8.8 8.5-10.1 mg/dL Total Bilirubin 0.1 L 0.2-1.0 mg/dL Direct Bilirubin < 0.1 0.0-0.3 mg/dL Aspartate Amino Transf (AST/SGOT) 22 10-37 U/L Alanine Aminotransferase (ALT/SGPT) 23 12-78 U/L Alkaline Phosphatase 109 50-136 U/L Total Protein 7.3 6.0-8.3 g/dL Albumin 3.6 3.5-5.0 g/dL Amylase Level 63 25-115 U/L Lipase 49 16-77 U/L DIAGNOSTICS / RADIOLOGY: [Copy/Paste Echos/Imaging Report here] ASSESSMENT: [] Abdominal pain Biliary colic Cholelithiasis PLAN: [] NPO/IVF/IV ANTIOBIOTICS Awaiting HIDA scan Schedule for OR We talked about various treatment options including but not limited to surgery. We talked about risks and benefits of surgery, patient verbalized understanding has agreed to proceed [ ]. We will schedule [ robotic/laparoscopic cholecystectomy possible open]. AZALEA BRUNO MD May 08, 2024 16:47
[2024-05-08 17:24] VITALS: BP 144/84; PULSE 76; RESP 20; TEMP 98.4
--- NOTE | 2024-05-08 19:53 | HMCIMG ---
NM HIDA WO EF/CCK REASON: CHOLECYSTITIS COMPARISON: None TECHNIQUE: Images were acquired following injection of 6.5 mCi technetium 99m Choletec. FINDINGS: There is prompt hepatic parenchymal uptake. There is prompt excretion into the common duct and gallbladder. There is near complete clearing of hepatic activity by one hour. IMPRESSION: 1. Normal hepatobiliary scan.
[2024-05-08 20:00] VITALS: BP 130/79; PULSE 74; RESP 18; TEMP 97.9; O2SAT 98
[2024-05-09] VITALS (9 sets, daily range): BP systolic 109–138; BP diastolic 63–76; PULSE 57–74; RESP 18–20; TEMP 97.9–98.8; O2SAT 98–100
[2024-05-09 06:41] LABS: HEMATOCRIT 33.6 % (36-48); MEAN CORPUSCULAR HEMOGLOBIN 27.4 pg (27.0-33.0); MEAN CORPUSCULAR HGB CONC 32.7 g/dL (32.0-36.0); MEAN CORPUSCULAR VOLUME 83.6 fL (79-99); RED BLOOD CELL COUNT(AUTO) 4.02 MIL/uL (4.00-5.50); RED CELL DISTRIBUTION WIDTH 13.6 % (11.0-15.5); WHITE BLOOD COUNT (AUTO) 9.3 K/uL (4.8-10.8)
[2024-05-09 06:42] LABS: CREATININE 0.7 mg/dL (0.5-1.0); POTASSIUM 3.7 mmol/L (3.5-5.1)
--- NOTE | 2024-05-09 09:34 | NUR ---
DCP: HOME Pt lives in duplex with her daughter Nancy Asif [phone]. Pt works at [employer], states she is active and independent. Able to complete ADLS, home management and meal prep on her own. Has no insurance or PCP, uses [facility] for rx when needed. Community resources were provided. DCP is home and family to transport Addendum: 05/09/24 at 0939 by JUDITH CUMMINS Amended: Links added.
--- NOTE | 2024-05-09 10:53 | PN ---
[facility] PROGRESS NOTE Date of Service: May 09, 2024 Time of Service: 10:43 SUBJECTIVE: This 49-year-old female patient with significant past medical history of obesity and cholelithiasis who presented to [facility] for evaluation of of right upper quadrant pain onset last night. She reports that she had some fat greasy food prior to arrival and started with severe epigastric pain that radiates to her back. The patient reports that she took chamomile with the room improvement of the pain. Patient reports she has not had an appointment with a general surgeon for evaluation of her issues. CBC within normal limits. Remarkable lab results: Sodium 134. UA: Positive for leuk EST. ED physician reports patient's ultrasound does show moderate suspicion for cholecystitis and would like patient admitted for further evaluation and care. In ED patient received LR1 L bolus, morphine4 mg IV, Zofran4 mg IV, Zosyn 3.375. 05/08/24 The patient is seen and evaluated by me this morning, she is lying comf ortably in bed. She is NPO today. She is complaining of right upper quadrant abdominal pain and nausea. She was given zofran for nausea in the morning. Her vitals are stable. She has been afebrile since admission. CBC, CMP unremarkable and UA is positive for leukocyte esterase. Surgery was consulted and Dr. Rudolph ordered HIDA scan. 05/09/24 Patient is seen resting comfortably in her bed today. She is asymptomatic at the moment. Denies abdominal pain, nausea, vomiting , fever or chills. Her vitals have been stable. Serum sodium dropped from 134 to 124 today. NaCl 500 ml bolus will be given and then will repeat Na level. HIDA scan was performed yesterday which showed normal hepatobiliary scab. Patient is to undergo robotic lap cholecystectomy by Dr. Rudolph today. REVIEW OF SYSTEMS Constitutional: Negative for fever,chills, and weight loss Eyes: Negative for injury, pain,redness, and discharge ENT: Negative for injury,pain or swelling Cardiovascular: Negative for chest pain, palpitations, and edema Respiratory: Negative for shortness of breath, cough, and wheezing, Abdomen/GI: Abdominal pain resolved Back: Negative for injury and pain : Negative for injury, bleeding and discharge MS/Extremity: Negative for injury and deformity Skin: Negative for rash, and discoloration Neuro: Negative for headache, weakness, numbness, tingling, and seizure Psych: Negative for suicide ideation, homicidal ideation, and hallucinations PHYSICAL EXAM GENERAL APPEARANCE: The patient is awake, alert, and oriented, in no acute cardiopulmonary distress. NEUROLOGICAL: Cranial nerves II-XII grossly intact. Motor is 5/5 in bilateral upper and lower extremities proximal to distal. No sensory deficits. HEENT: Face is symmetric. Pupils are equal and reactive. Extraocular movements are intact. NECK: Supple. No JVD. No thyromegaly. No submental, submandibular, pre- /postauricular, occipital or supraclavicular lymphadenopathy. CHEST: Normal chest expansion. No Telemetry. LUNGS: Absence of any rales, rhonchi or any wheezing. CARDIOVASCULAR: Regular. S1 and S2 normal. No appreciable rubs, murmurs or gallops. ABDOMEN: Soft, nontender, and nondistended. There is no rebound, voluntary guarding, or rigidity. : Deferred. No Chavez. EXTREMITIES: Non-edematous and not cyanotic. No clubbing. Good capillary refill. SKIN: No skin breakdown. Vital Signs (last 8hr) Date Time Temp Pulse Resp B/P (MAP) Pulse Ox O2 Delivery O2 Flow Rate FiO2 05/09/24 07:10 98.1 62 20 131/75 100 Room Air 21 05/09/24 04:00 98.1 57 18 113/69 97 Room Air LABS: Laboratory: Test 05/09/24 05:28 05/09/24 05:11 05/08/24 12:17 05/07/24 23:38 Range/Units Whole Blood Glucose 87 70-110 MG/DL White Blood Count 9.3 4.8-10.8 K/uL Red Blood Count 4.02 4.00-5.50 MIL/uL Hemoglobin 11.0 L 12.0-16.0 g/dL Hematocrit 33.6 L 36-48 % Mean Corpuscular Volume 83.6 79-99 fL Mean Corpuscular Hemoglobin 27.4 27.0-33.0 pg Mean Corpuscular Hemoglobin Concent 32.7 32.0-36.0 g/dL Red Cell Distribution Width 13.6 11.0-15.5 % Platelet Count 341 130-400 K/uL Mean Platelet Volume 9.3 7.5-10.5 fL Nucleated Red Blood Cells 0.0 0.0-0.19 % Sodium Level 124 L 136-145 mmol/L Potassium Level 3.7 3.5-5.1 mmol/L Chloride Level 106 101-111 mmol/L Carbon Dioxide Level 26 21-32 mmol/L Blood Urea Nitrogen 7 7-18 mg/dL Creatinine 0.7 0.5-1.0 mg/dL Glomerular Filtration Rate Calc 106 >90 mL/min Random Glucose 84 70-105 mg/dL Total Calcium 7.8 L 8.5-10.1 mg/dL Magnesium Level 2.00 1.80-2.40 mg/dL Urine HCG, Qualitative NEGATIVE NEGATIVE Immature Granulocyte % (Auto) 0.4 0-1 % Neutrophils (%) (Auto) 66.9 40.0-77.0 % Lymphocytes (%) (Auto) 24.4 21.0-51.0 % Monocytes (%) (Auto) 5.2 3.0-13.0 % Eosinophils (%) (Auto) 2.2 0.0-8.0 % Basophils (%) (Auto) 0.9 0.0-5.0 % Neutrophils # (Auto) 5.3 1.8-7.7 K/uL Lymphocytes # (Auto) 1.9 1.0-4.8 K/uL Monocytes # (Auto) 0.4 0.1-1.0 K/uL Eosinophils # (Auto) 0.17 0.00-0.70 K/uL Basophils # (Auto) 0.07 0.00-0.20 K/uL Absolute Immature Granulocyte (auto 0.03 0-1 K/uL Urine Color LIGHT-YELLOW YELLOW Urine Appearance CLEAR CLEAR Urine pH 6.5 5.0-8.0 Urine Specific [facility] 1.008 1.001-1.031 Urine Protein NEGATIVE NEGATIVE mg/dL Urine Glucose (UA) NEGATIVE NEGATIVE mg/dL Urine Ketones NEGATIVE NEGATIVE mg/dL Urine Occult Blood NEGATIVE NEGATIVE Urine Nitrate NEGATIVE NEGATIVE Urine Bilirubin NEGATIVE NEGATIVE mg/dL Urine Urobilinogen 0.2 0.2-1.0 mg/dL Urine Leukocyte Esterase 25 H NEGATIVE Opal/uL Urine RBC 0-1 0-1 /HPF Urine WBC 6-10 H 0-1 /HPF Urine Squamous Epithelial Cells FEW 0-2 /HPF Urine Bacteria FEW None Seen /HPF Urine Hyaline Casts 2-5 H 0-1 /LPF /LPF Total Bilirubin 0.1 L 0.2-1.0 mg/dL Direct Bilirubin < 0.1 0.0-0.3 mg/dL Aspartate Amino Transf (AST/SGOT) 22 10-37 U/L Alanine Aminotransferase (ALT/SGPT) 23 12-78 U/L Alkaline Phosphatase 109 50-136 U/L Total Protein 7.3 6.0-8.3 g/dL Albumin 3.6 3.5-5.0 g/dL Amylase Level 63 25-115 U/L Lipase 49 16-77 U/L Current Medications Medications (Trade) Dose Ordered Sig/Peace Route PRN Reason Start Time Stop Time Status Last Admin Dose Admin Acetaminophen (TYLenol 325MG TAB) 650 mg Q6H PRN PO FEVER/MILD PAIN LEVEL 1-3 05/08/24 03:30 06/07/24 03:29 05/08/24 08:47 650 MG Acetaminophen (TYLenol 650MG SUPPOSITORY) 650 mg Q6H PRN RC FEVER / MILD PAIN 1-3 IF NPO 05/08/24 03:30 06/07/24 03:29 Dextrose (D50w) 50 ml AD PRN IV HYPOGLYCEMIA PROTOCOL 05/08/24 06:30 06/07/24 06:29 Docusate Sodium (COLace 100MG CAP) 100 mg BID PRN PO c 05/08/24 03:30 06/07/24 03:29 Glucagon (Glucagon 1mg Kit) 1 mg AD PRN IM HYPOGLYCEMIA PROTOCOL 05/08/24 06:30 06/07/24 06:29 Hydralazine HCl (APRESOLine 20MG INJ) 10 mg Q2H PRN IV SBP GREATER THAN 160 05/08/24 03:30 06/07/24 03:29 Hydromorphone HCl (DiLAUDid 0.5MG INJ) 0.5 mg Q4H PRN IVP SEVERE PAIN (7-10) 05/08/24 04:00 05/13/24 03:59 Hydromorphone HCl (DiLAUDid 1MG INJ) 0.5 mg Q4H PRN IVP SEVERE PAIN (7-10) 05/08/24 03:30 05/13/24 03:29 Insulin Human Regular (humuLIN R 100 UNIT/ML 3ML) INSULIN SLIDING SCAL... ACHS SQ 05/08/24 07:30 06/07/24 07:29 Ketorolac Tromethamine (toRADol) 30 mg Q6H PRN IM SEVERE PAIN (7-10) 05/08/24 04:00 05/13/24 03:59 Lactulose (Constulose 20gm/ 30ml Udcup) 20 gm Q6H PRN PO CONSTIPATION 05/08/24 03:30 06/07/24 03:29 Magnesium Sulfate 50 ml @ 0 mls/hr PROTOCOL PRN IV MAGNESIUM PROTOCOL 05/08/24 06:30 06/07/24 06:29 Morphine Sulfate (morPHINE 2MG SYG) 2 mg Q4H PRN IVP MODERATE PAIN (4-6) 05/08/24 03:30 05/15/24 03:29 Ondansetron HCl (zoFRAN 4MG INJ) 4 mg Q6H PRN IVP NAUSEA/VOMITING 05/08/24 03:30 06/07/24 03:29 05/08/24 07:03 4 MG Pantoprazole Sodium (PROTonix 40MG INJ) 40 mg BID IVP 05/08/24 09:00 06/07/24 08:59 05/09/24 09:16 40 MG Piperacillin Sod/ Tazobactam Sod (Zosyn 3.375gm+NS 50ml) 3.375 gm Q8H IVPB 05/08/24 11:00 05/18/24 10:59 05/09/24 02:51 3.375 GM Potassium Chloride 100 ml @ 100 mls/hr AD PRN IV POTASSIUM PROTOCOL 05/08/24 06:30 06/07/24 06:29 Sodium Chloride 1,000 ml @ 75 mls/hr [id number] IV 05/08/24 03:30 06/07/24 03:29 05/08/24 08:46 75 MLS/HR Sodium Chloride (NS 50ml) 50 ml AD IV 05/08/24 11:00 05/08/24 06:07 DC Temazepam (restORIL 15 MG CAP) 15 mg HS PRN PO INSOMNIA/SLEEP 05/08/24 03:30 06/07/24 03:29 DIAGNOSTICS / RADIOLOGY: [place] [address] [place] [address] IMAGING REPORT Signed PATIENT: WANG RAMOS MR#: [id number] : 1975 SEX: F AGE: 49 LOCATION: 4DH ORDER [id number] STATUS: ADM IN REPORT#: [id number] SERVICE 0841 REASON: CHOLECYSTITIS ORDERING PHYSICIAN: AZALEA WHITNEY MD PROCEDURE: HIDAWO - NM HIDA WO EF/CCK NM HIDA WO EF/CCK REASON: CHOLECYSTITIS COMPARISON: None TECHNIQUE: Images were acquired following injection of 6.5 mCi technetium 99m Choletec. FINDINGS: There is prompt hepatic parenchymal uptake. There is prompt excretion into the common duct and gallbladder. There is near complete clearing of hepatic activity by one hour. IMPRESSION: 1. Normal hepatobiliary scan. DICTATED BY: JOSELIN QUACH MD DATE: 05/08/241949 ELECTRONICALLY SIGNED BY: JOSELIN QUACH MD DATE: 05/08/241952 [place] [address] IMAGING REPORT Signed PATIENT: WANG RAMOS MR#: [id number] : 1975 SEX: F AGE: 49 LOCATION: 4DH ORDER [id number] STATUS: ADM IN [facility] REPORT#: [id number] SERVICE 2355 REASON: Adominal Pain ORDERING PHYSICIAN: PILO COELHO MD PROCEDURE: ABDRUQLTD - US ABDOMINAL RUQ\LTD US ABDOMINAL RUQ\E\LTD HISTORY: Adominal Pain COMPARISON: None FINDINGS: There is mild fatty infiltration of the liver. There are no focal liver masses. The liver is mildly enlarged at 18 cm.There are stones present within the gallbladder. There is no wall thickening or edema. Common duct is normal at 3 mm.. Right kidney is normal with no evidence of mass, hydronephrosis or stone.The pancreas appears normal as well. IMPRESSION: 1. Cholelithiasis without evidence of acute cholecystitis. 2. Mild to moderate fatty infiltration of the liver which is enlarged at 18 cm. DICTATED BY: JOSELIN QUACH MD DATE: 05/08/24817 ELECTRONICALLY SIGNED BY: JOSELIN QUACH MD DATE: 05/08/24822 [facility] [address] [place] [address] IMAGING REPORT Signed PATIENT: WANG RAMOS MR#: [id number] : 1975 SEX: F AGE: 49 LOCATION: 4DH ORDER [id number] STATUS: ADM IN REPORT#: [id number] SERVICE 54 REASON: SOB ORDERING PHYSICIAN: PILO COELHO MD PROCEDURE: CXR1VW - CHEST 1VW CHEST 1VW REASON: SOB COMPARISON: None. FINDINGS: Single view of the chest was obtained. Lungs are clear. Heart size is normal. There is no pulmonary vascular congestion. Mediastinum and bony thorax appear unremarkable. IMPRESSION: 1. Normal single view chest x-ray. DICTATED BY: JOSELIN QUACH MD DATE: 05/08/24927 ELECTRONICALLY SIGNED BY: JOSELIN QUACH MD DATE: 05/08/24929 ASSESSMENT: Acute cholecystitis, POA Acute abdominal pain, POA Acute complicated cystitis, POA Hyponatremia, improve Obesity, BMI 28.4 History of cholelithiasis PLAN: Continue to monitor patient on medical/surgical floor. Acute cholecystitis, POA Acute abdominal pain, POA Patient to remain NPO. Surgeon Dr. Rudolph consult appreciated and ordered HIDA scan which showed normal hepatobiliary scan. Patient is to undergo robotic lap cholecystectomy today by Dr. Rudolph. Continue 0.9% NaCl @ 75 ml/hrs. Na decreased from 134 to 124 today. We will give 500 ml NaCl bolus and will recheck sodium level after. Abdominal US showed multiple gallstones in gallbladder. Continue Zosyn 3.375 mg IV Q 8hours. Glucometer checks a.c. and HS with insulin regular sliding scale. P.r.n. medications for: Pain management, nausea, vomiting, constipation, hypertension. Glucometer checks a.c. and HS with insulin regular sliding scale. Blood pressure checks every 4 hours and as needed. Reconcile home medications once available. DVT and GI prophylaxis: SCDs, continue ambulation and Protonix. ATTESTATION BY PHYSICIAN I have seen and examined the patient. I reviewed the documentation, medical decision making, and treatment plan as noted by the resident provider above. I agree with the findings and plan of care. Citlalli Everett MD, KRUPALI P MD May 09, 2024 10:53
[2024-05-09] MEDS: DEXTROSE 50%-WATER 50 ML DISP.SYRIN IV PRN (11:33)
[2024-05-09] MEDS: 0.9% NACL 500ML IV.SOLN 500 ML IV ONE (11:39)
--- NOTE | 2024-05-09 19:47 | PN ---
GENERAL SURGERY PROGRESS NOTE DATE OF SERVICE: May 09, 2024 TIME OF SERVICE: 19:47 No new issues Feels hungry PROBLEM LISTS: [ ] INTERVAL HISTORY: [ ] PHYSICAL EXAMINATION: GENERAL: [Patient is lying comfortably in bed, not in any obvious distress.] HEAD: [Normal with no signs of head trauma.] EYES: [Not pale not jaundiced afebrile to touch.] ENT: [ Normal.] NECK: [Supple,no tenderness,no lymphadenopathy,no masses,no thyromegaly ,no bruits, no JVD.] LUNGS: [Clear breath sounds bilaterally. No wheezes, rales, or rhonchi.] HEART: [Regular rate and rhythm. Normal S1 and S2, without murmurs, rub or gallop.] VASC: [No edema. Peripheral pulses normal and equal in all extremities.] ABD: [Bowel sounds present,soft, nontender, no masses, no organomegaly.] : [Normal, no suprapubic tenderness.] LYMPH: [No lymphadenopathy noted.] EXT: [ Warm soft, non tender.] SKIN: [ No rashes or lesions.] NEURO: [ Awake Alert and oriented x3.] LABORATORY: [ ] Hematology Labs: Test 05/09/24 05:11 05/07/24 23:38 Range/Units White Blood Count 9.3 4.8-10.8 K/uL Red Blood Count 4.02 4.00-5.50 MIL/uL Hemoglobin 11.0 L 12.0-16.0 g/dL Hematocrit 33.6 L 36-48 % Mean Corpuscular Volume 83.6 79-99 fL Mean Corpuscular Hemoglobin 27.4 27.0-33.0 pg Mean Corpuscular Hemoglobin Concent 32.7 32.0-36.0 g/dL Red Cell Distribution Width 13.6 11.0-15.5 % Platelet Count 341 130-400 K/uL Mean Platelet Volume 9.3 7.5-10.5 fL Nucleated Red Blood Cells 0.0 0.0-0.19 % Immature Granulocyte % (Auto) 0.4 0-1 % Neutrophils (%) (Auto) 66.9 40.0-77.0 % Lymphocytes (%) (Auto) 24.4 21.0-51.0 % Monocytes (%) (Auto) 5.2 3.0-13.0 % Eosinophils (%) (Auto) 2.2 0.0-8.0 % Basophils (%) (Auto) 0.9 0.0-5.0 % Neutrophils # (Auto) 5.3 1.8-7.7 K/uL Lymphocytes # (Auto) 1.9 1.0-4.8 K/uL Monocytes # (Auto) 0.4 0.1-1.0 K/uL Eosinophils # (Auto) 0.17 0.00-0.70 K/uL Basophils # (Auto) 0.07 0.00-0.20 K/uL Absolute Immature Granulocyte (auto 0.03 0-1 K/uL Chemistry Labs: Test 05/09/24 19:34 05/09/24 12:25 05/09/24 05:11 05/07/24 23:38 Range/Units Whole Blood Glucose 84 70-110 MG/DL Sodium Level 134 L 136-145 mmol/L Potassium Level 3.7 3.5-5.1 mmol/L Chloride Level 106 101-111 mmol/L Carbon Dioxide Level 26 21-32 mmol/L Blood Urea Nitrogen 7 7-18 mg/dL Creatinine 0.7 0.5-1.0 mg/dL Glomerular Filtration Rate Calc 106 >90 mL/min Random Glucose 84 70-105 mg/dL Total Calcium 7.8 L 8.5-10.1 mg/dL Magnesium Level 2.00 1.80-2.40 mg/dL Total Bilirubin 0.1 L 0.2-1.0 mg/dL Direct Bilirubin < 0.1 0.0-0.3 mg/dL Aspartate Amino Transf (AST/SGOT) 22 10-37 U/L Alanine Aminotransferase (ALT/SGPT) 23 12-78 U/L Alkaline Phosphatase 109 50-136 U/L Total Protein 7.3 6.0-8.3 g/dL Albumin 3.6 3.5-5.0 g/dL Amylase Level 63 25-115 U/L Lipase 49 16-77 U/L DIAGNOSTICS / RADIOLOGY: [Copy/Paste Echos/Imaging Report here] ASSESSMENT: [] Abdominal pain Biliary colic Cholelithiasis PLAN: [] OR in melbaAZALEA Curry MD May 09, 2024 19:47
[2024-05-10] VITALS (22 sets, daily range): BP systolic 106–152; BP diastolic 63–90; PULSE 58–78; RESP 16–22; TEMP 97.3–98.5; O2SAT 98–99
[2024-05-10 04:53] LABS: BASOPHILS # (AUTO) 0.05 K/uL (0.00-0.20); BASOPHILS % (AUTO) 0.6 % (0.0-5.0); EOSINOPHILS # (AUTO) 0.06 K/uL (0.00-0.70); EOSINOPHILS % (AUTO) 0.7 % (0.0-8.0); IMMATURE GRANULOCYTE ABSOLUTE 0.02 K/uL (0-1); LYMPHOCYTES # (AUTO) 1.7 K/uL (1.0-4.8); LYMPHOCYTES % (AUTO) 18.8 % (21.0-51.0); MEAN CORPUSCULAR HEMOGLOBIN 27.1 pg (27.0-33.0); MEAN CORPUSCULAR HGB CONC 32.3 g/dL (32.0-36.0); MEAN CORPUSCULAR VOLUME 83.9 fL (79-99); MONOCYTES # (AUTO) 0.4 K/uL (0.1-1.0); MONOCYTES % (AUTO) 4.6 % (3.0-13.0); NEUTROPHILS # (AUTO) 6.6 K/uL (1.8-7.7); NEUTROPHILS % (AUTO) 75.1 % (40.0-77.0); PLATELET COUNT (AUTO) 313 K/uL (130-400); RED BLOOD CELL COUNT(AUTO) 4.17 MIL/uL (4.00-5.50); RED CELL DISTRIBUTION WIDTH 13.2 % (11.0-15.5); WHITE BLOOD COUNT (AUTO) 8.8 K/uL (4.8-10.8)
[2024-05-10 04:59] LABS: CREATININE 0.7 mg/dL (0.5-1.0); MAGNESIUM 1.9 mg/dL (1.80-2.40); POTASSIUM 3.4 mmol/L (3.5-5.1)
--- NOTE | 2024-05-10 06:36 | NUR ---
Page Paged hospitalist regarding glucose at 68, patient states Dextrose IV push too painful. Pending call back.
--- NOTE | 2024-05-10 08:35 | NUR ---
LAP GAMALIEL PATIENT LEFT VIA STRETCHER TO OR HOLDING FOR PENDING LAP GAMALIEL PROCEDURE. NO S/S OF DISTRESS NOTED. WILL CONTINUE TO MONITOR.
[2024-05-10] MEDS ORDERED: ketaMINE 50MG/ML SYRINGE 50 MG/ML DISP.SYRIN ONE (08:45)
[2024-05-10] MEDS: DEXTROSE 50%-WATER 50 ML DISP.SYRIN IV ONE (08:47)
[2024-05-10] MEDS ORDERED: proPOFol 10 MG/ML 20ML VIAL IV ONE (08:50)
[2024-05-10] MEDS ORDERED: LIDOCAINE PF 100MG/5ML (2%) SYRINGE 5ML ONE (08:50)
[2024-05-10] MEDS ORDERED: rocuRONium bROMide 10MG/1ML 5ML VL ONE (08:50)
[2024-05-10] MEDS: 0.9%NACL 1000ML 1,000 ML IV ONE (08:51)
[2024-05-10] MEDS ORDERED: FENTanyl CITRate PF 50 MCG/1 ML 2ML VIAL ONE (08:51)
[2024-05-10] MEDS ORDERED: LIDOCAINE HCL 1% 20 ML VIAL ONE (09:09)
[2024-05-10] MEDS ORDERED: EPINEPHrine PF 1MG (1:1,000) 1 MG/ML AMP ONE (09:09)
[2024-05-10] MEDS ORDERED: BUPIvacaine/PF 0.25% 30ML VIAL IJ ONE (09:09)
[2024-05-10] MEDS ORDERED: ondanSETRON 4MG INJ ONE (09:14)
[2024-05-10] MEDS ORDERED: dexaMETHasone SOD PHOSPHATE 10MG/ML 1ML VIAL ONE (09:14)
[2024-05-10] MEDS ORDERED: NEOSTIGMINE METHYLSULFATE 1MG/ML IV ONE (09:51)
[2024-05-10] MEDS ORDERED: GLYCOPYRROLATE 0.2 MG/ML 5 ML VIAL ONE (09:51)
--- NOTE | 2024-05-10 10:07 | OP ---
OP Procedure: Robotic Mraiah OP Procedure Note OPERATIVE PROCEDURE NOTE DATE OF SERVICE: May 10, 2024 PREOPERATIVE DIAGNOSIS: [ ] POSTOPERATIVE DIAGNOSIS: [ ] PROCEDURES PREFORMED: 1. Robotic Cholecystectomy SURGEON: Azalea Bruno MD ANESTHESIA: General. ESTIMATED BLOOD LOSS: Minimal. SPECIMEN(S) REMOVED: Gallbladder. FINDINGS: Very enlarged tense gallbladder moderate right upper quadrant inflammatory adhesions COMPLICATIONS: None. DESCRIPTION OF PROCEDURE: The patient was brought into the Operating Room. After proper identification, the patient was placed on the operating table in the supine position. General anesthesia was then administered and the patient was endotracheally intubated. Attention was then focussed in the area of the abdomen. The same was prepped and draped in the usual sterile fashion. An appropriate time-out was then carried out at this point. Then, I proceeded by making an incision in the infraumbilical region. The incision was carried through skin and subcutaneous tissue until the fascia was identified. The fascia was then carefully incised and the stay stitches were placed on either side of the fascia and the Jimmy port was then introduced. CO2 was insufflated into the abdomen and the robotic camera was then introduced. Inspection of the abdomen did not show any anterior abdominal wall adhesions. The gallbladder was noted to be enlarged and tense with evidence of moderate right upper quadrant inflammatory adhesions. So at this point, I proceeded by placing the left-sided port and also the right-sided port under vision and my auction assistant; port was then placed right-sided lateral. So, at this point, the patient was then placed in slight reverse Trendelenburg position and rotated to his left. The robot was then brought in and then we proceeded by docking the robot with no difficulty. Once the robot was docked and everything looked fine, I proceeded by going into the console area. My auction assistant, then grasped the fundus of the gallbladder and the same was retracted cephalad and using the grasper and the robotic [ ], I proceeded by taking down the inflammatory adhesions in the right upper quadrant. At the infundibulum, I proceeded by grasping the infundibulum, I proceeded by carefully opening the peritoneum covering the triangle of Calot and I was able to expose the cystic duct and the cystic artery. Each of these structures were then skeletonized for a distance of about 2 cm and then I proceeded by placing clips; proximal and distal clips on each of these structures. Using the robotic scissors, I proceeded by transecting these 2 structures. The gallbladder was then removed from the gallbladder fossa using the robotic cautery all the way down until I was able to remove it at the fundus as well. Further inspection did not reveal any other pathology. Hemostasis was noted to be adequate. So, at this point, the robot was then undocked. I scrubbed in and the gallbladder was then extracted from the abdomen using an Endopouch. Copious amount of irrigation was carried out at this point. Hemostasis was noted to be adequate. Then, I proceeded by closing the wound. Ports were withdrawn under vision. CO2 was let out of the abdomen. The infraumbilical fascia was approximated together using 0 Vicryl [id number] stitches and the skin was approximated together using 4-0 Monocryl subcuticular closure. Steri-Strips and sterile dressings were then applied. Instrument and sponges count was found correct x2. The patient was then woken up, extubated and taken to Recovery Room in stable condition. The patient tolerated the procedure well. AZALEA BRUNO MD May 10, 2024 10:07
[2024-05-10] MEDS: ketOROlac 15MG/ML VIAL (15MG/ML) ONE (10:33)
[2024-05-10] MEDS: MEPERIDINE-PF 25 MG/ML SYG ONE ×2 (10:33→10:34)
--- NOTE | 2024-05-10 10:43 | PN ---
[facility] PROGRESS NOTE Date of Service: May 10, 2024 Time of Service: 10:32 SUBJECTIVE: This 49-year-old female patient with significant past medical history of obesity and cholelithiasis who [place] [facility] for evaluation of of right upper quadrant pain onset last night. She reports that she had some fat greasy food prior to arrival and started with severe epigastric pain that radiates to her back. The patient reports that she took chamomile with the room improvement of the pain. Patient reports she has not had an appointment with a general surgeon for evaluation of her issues. CBC within normal limits. Remarkable lab results: Sodium 134. UA: Positive for leuk EST. ED physician reports patient's ultrasound does show moderate suspicion for cholecystitis and would like patient admitted for further evaluation and care. In ED patient received LR1 L bolus, morphine4 mg IV, Zofran4 mg IV, Zosyn 3.375. 05/08/24 The patient is seen and evaluated by me this morning, she is lying comf ortably in bed. She is NPO today. She is complaining of right upper quadrant abdominal pain and nausea. She was given zofran for nausea in the morning. Her vitals are stable. She has been afebrile since admission. CBC, CMP unremarkable and UA is positive for leukocyte esterase. Surgery was consulted and Dr. Rudolph ordered HIDA scan. 05/09/24 Patient is seen resting comfortably in her bed today. She is asymptomatic at the moment. Denies abdominal pain, nausea, vomiting , fever or chills. Her vitals have been stable. Serum sodium dropped from 134 to 124 today. NaCl 500 ml bolus will be given and then will repeat Na level. HIDA scan was performed yesterday which showed normal hepatobiliary scab. Patient is to undergo robotic lap cholecystectomy by Dr. Rudolph today. 05/10/24 The patient is taken down to the OR for the robotic lap cholecystectomy by Dr. Rudolph. The vitals have been stable. CBCs unremarkable. Potassium level 3.4 and will be replaced. Glucose level in the morning was 68 and the nurse tried to give her dextrose IV push but patient stated that too painful. Patient was asymptomatic. Total calcium 7.8. I will order ionized calcium and albumin. Patient is seen popst surgery and she is complaining of pain, received pain medications which is helping with her pain. She denies nausea or vomiting after having liquid diet. Ambulate three times daily. Plan to discharge tomorrow if she is stable. REVIEW OF SYSTEMS Constitutional: Negative for fever,chills, and weight loss Eyes: Negative for injury, pain,redness, and discharge ENT: Negative for injury,pain or swelling Cardiovascular: Negative for chest pain, palpitations, and edema Respiratory: Negative for shortness of breath, cough, and wheezing, Abdomen/GI: Abdominal pain resolved Back: Negative for injury and pain : Negative for injury, bleeding and discharge MS/Extremity: Negative for injury and deformity Skin: Negative for rash, and discoloration Neuro: Negative for headache, weakness, numbness, tingling, and seizure Psych: Negative for suicide ideation, homicidal ideation, and hallucinations PHYSICAL EXAM GENERAL APPEARANCE: The patient is awake, alert, and oriented, in no acute cardiopulmonary distress. NEUROLOGICAL: Cranial nerves II-XII grossly intact. Motor is 5/5 in bilateral upper and lower extremities proximal to distal. No sensory deficits. HEENT: Face is symmetric. Pupils are equal and reactive. Extraocular movements are intact. NECK: Supple. No JVD. No thyromegaly. No submental, submandibular, pre-/postauricular, occipital or supraclavicular lymphadenopathy. CHEST: Normal chest expansion. No Telemetry. LUNGS: Absence of any rales, rhonchi or any wheezing. CARDIOVASCULAR: Regular. S1 and S2 normal. No appreciable rubs, murmurs or gallops. ABDOMEN: Soft, nontender, and nondistended. There is no rebound, voluntary guarding, or rigidity. : Deferred. No Chavez. EXTREMITIES: Non-edematous and not cyanotic. No clubbing. Good capillary refill. SKIN: No skin breakdown. Vital Signs (last 8hr) Date Time Temp Pulse Resp B/P (MAP) Pulse Ox O2 Delivery O2 Flow Rate FiO2 05/10/24 10:15 97.3 74 22 143/85 100 Nonrebreathing Mask 10.0 05/10/24 08:32 98.2 63 19 106/63 99 Room Air 0.0 21 05/10/24 08:29 98.2 63 19 106/63 99 Room Air 05/10/24 04:31 98.2 66 18 117/72 100 Room Air 21 LABS: Laboratory: Test 05/10/24 08:54 05/10/24 04:18 05/08/24 12:17 Range/Units Whole Blood Glucose 164 #H 70-110 MG/DL White Blood Count 8.8 4.8-10.8 K/uL Red Blood Count 4.17 4.00-5.50 MIL/uL Hemoglobin 11.3 L 12.0-16.0 g/dL Hematocrit 35.0 L 36-48 % Mean Corpuscular Volume 83.9 79-99 fL Mean Corpuscular Hemoglobin 27.1 27.0-33.0 pg Mean Corpuscular Hemoglobin Concent 32.3 32.0-36.0 g/dL Red Cell Distribution Width 13.2 11.0-15.5 % Platelet Count 313 130-400 K/uL Mean Platelet Volume 9.1 7.5-10.5 fL Immature Granulocyte % (Auto) 0.2 0-1 % Neutrophils (%) (Auto) 75.1 40.0-77.0 % Lymphocytes (%) (Auto) 18.8 L 21.0-51.0 % Monocytes (%) (Auto) 4.6 3.0-13.0 % Eosinophils (%) (Auto) 0.7 0.0-8.0 % Basophils (%) (Auto) 0.6 0.0-5.0 % Neutrophils # (Auto) 6.6 1.8-7.7 K/uL Lymphocytes # (Auto) 1.7 1.0-4.8 K/uL Monocytes # (Auto) 0.4 0.1-1.0 K/uL Eosinophils # (Auto) 0.06 0.00-0.70 K/uL Basophils # (Auto) 0.05 0.00-0.20 K/uL Absolute Immature Granulocyte (auto 0.02 0-1 K/uL Nucleated Red Blood Cells 0.0 0.0-0.19 % Sodium Level 139 136-145 mmol/L Potassium Level 3.4 L 3.5-5.1 mmol/L Chloride Level 103 101-111 mmol/L Carbon Dioxide Level 23 21-32 mmol/L Blood Urea Nitrogen 8 7-18 mg/dL Creatinine 0.7 0.5-1.0 mg/dL Glomerular Filtration Rate Calc 106 >90 mL/min Random Glucose 67 L 70-105 mg/dL Total Calcium 7.8 L 8.5-10.1 mg/dL Magnesium Level 1.90 1.80-2.40 mg/dL Urine HCG, Qualitative NEGATIVE NEGATIVE Current Medications Medications (Trade) Dose Ordered Sig/Peace Route PRN Reason Start Time Stop Time Status Last Admin Dose Admin Acetaminophen (TYLenol 325MG TAB) 650 mg Q6H PRN PO FEVER/MILD PAIN LEVEL 1-3 05/08/24 03:30 06/07/24 03:29 05/09/24 19:57 650 MG Acetaminophen (TYLenol 650MG SUPPOSITORY) 650 mg Q6H PRN RC FEVER / MILD PAIN 1-3 IF NPO 05/08/24 03:30 06/07/24 03:29 Dextrose (D50w) 50 ml AD PRN IV HYPOGLYCEMIA PROTOCOL 05/08/24 06:30 06/07/24 06:29 05/10/24 08:47 25 ML Docusate Sodium (COLace 100MG CAP) 100 mg BID PRN PO c 05/08/24 03:30 06/07/24 03:29 Glucagon (Glucagon 1mg Kit) 1 mg AD PRN IM HYPOGLYCEMIA PROTOCOL 05/08/24 06:30 06/07/24 06:29 Hydralazine HCl (APRESOLine 20MG INJ) 10 mg Q2H PRN IV SBP GREATER THAN 160 05/08/24 03:30 06/07/24 03:29 Hydromorphone HCl (DiLAUDid 0.5MG INJ) 0.5 mg Q4H PRN IVP SEVERE PAIN (7-10) 05/08/24 04:00 05/13/24 03:59 Hydromorphone HCl (DiLAUDid 1MG INJ) 0.5 mg Q4H PRN IVP SEVERE PAIN (7-10) 05/08/24 03:30 05/09/24 20:34 DC Insulin Human Regular (humuLIN R 100 UNIT/ML 3ML) INSULIN SLIDING SCAL... ACHS SQ 05/08/24 07:30 06/07/24 07:29 Ketorolac Tromethamine (toRADol) 30 mg Q6H PRN IM SEVERE PAIN (7-10) 05/08/24 04:00 05/09/24 20:34 DC Lactulose (Constulose 20gm/ 30ml Udcup) 20 gm Q6H PRN PO CONSTIPATION 05/08/24 03:30 06/07/24 03:29 Magnesium Sulfate 50 ml @ 0 mls/hr PROTOCOL PRN IV MAGNESIUM PROTOCOL 05/08/24 06:30 06/07/24 06:29 Morphine Sulfate (morPHINE 2MG SYG) 2 mg Q4H PRN IVP MODERATE PAIN (4-6) 05/08/24 03:30 05/15/24 03:29 Ondansetron HCl (zoFRAN 4MG INJ) 4 mg Q6H PRN IVP NAUSEA/VOMITING 05/08/24 03:30 06/07/24 03:29 05/09/24 18:50 4 MG Pantoprazole Sodium (PROTonix 40MG INJ) 40 mg BID IVP 05/08/24 09:00 06/07/24 08:59 05/09/24 19:55 40 MG Piperacillin Sod/ Tazobactam Sod (Zosyn 3.375gm+NS 50ml) 3.375 gm Q8H IVPB 05/08/24 11:00 05/18/24 10:59 05/10/24 02:51 3.375 GM Potassium Chloride 100 ml @ 100 mls/hr AD PRN IV POTASSIUM PROTOCOL 05/08/24 06:30 06/07/24 06:29 Sodium Chloride 1,000 ml @ 75 mls/hr Q95A13D IV 05/08/24 03:30 06/07/24 03:29 05/09/24 11:39 75 MLS/HR Sodium Chloride (NS 50ml) 50 ml AD IV 05/08/24 11:00 05/08/24 06:07 DC Temazepam (restORIL 15 MG CAP) 15 mg HS PRN PO INSOMNIA/SLEEP 05/08/24 03:30 06/07/24 03:29 DIAGNOSTICS / RADIOLOGY: [place] [id number] IMAGING REPORT Signed PATIENT: WANG RAMOS MR#: [id number] : 1975 SEX: F AGE: 49 LOCATION: 4DH ORDER [id number] STATUS: ADM IN REPORT#: [id number] SERVICE 0841 REASON: CHOLECYSTITIS ORDERING PHYSICIAN: AZALEA WHITNEY MD PROCEDURE: HIDAWO - NM HIDA WO EF/CCK NM HIDA WO EF/CCK REASON: CHOLECYSTITIS COMPARISON: None TECHNIQUE: Images were acquired following injection of 6.5 mCi technetium 99m Choletec. FINDINGS: There is prompt hepatic parenchymal uptake. There is prompt excretion into the common duct and gallbladder. There is near complete clearing of hepatic activity by one hour. IMPRESSION: 1. Normal hepatobiliary scan. DICTATED BY: JOSELIN QUACH MD DATE: 05/08/241949 ELECTRONICALLY SIGNED BY: JOSELIN QUACH MD DATE: 05/08/241952 [facility] [address] [place] [address] [id number] IMAGING REPORT Signed PATIENT: WANG RAMOS MR#: [id number] : 1975 SEX: F AGE: 49 LOCATION: 4DH ORDER 56 STATUS: ADM IN REPORT#: [id number] SERVICE 54 REASON: SOB ORDERING PHYSICIAN: PILO COELHO MD PROCEDURE: CXR1VW - CHEST 1VW CHEST 1VW REASON: SOB COMPARISON: None. FINDINGS: Single view of the chest was obtained. Lungs are clear. Heart size is normal. There is no pulmonary vascular congestion. Mediastinum and bony thorax appear unremarkable. IMPRESSION: 1. Normal single view chest x-ray. DICTATED BY: JOSELIN QUACH MD DATE: 05/08/24927 ELECTRONICALLY SIGNED BY: JOSELIN QUACH MD DATE: 05/08/24929 [facility] [address] [place] [address] [id number] IMAGING REPORT Signed PATIENT: WANG RAMOS MR#: [id number] : 1975 SEX: F AGE: 49 LOCATION: 4DH ORDER 56 STATUS: ADM IN [facility] REPORT#: [id number] SERVICE 54 REASON: Adominal Pain ORDERING PHYSICIAN: PILO COELHO MD PROCEDURE: ABDRUQLTD - US ABDOMINAL RUQ\LTD US ABDOMINAL RUQ\E\LTD HISTORY: Adominal Pain COMPARISON: None FINDINGS: There is mild fatty infiltration of the liver. There are no focal liver masses. The liver is mildly enlarged at 18 cm.There are stones present within the gallbladder. There is no wall thickening or edema. Common duct is normal at 3 mm.. Right kidney is normal with no evidence of mass, hydronephrosis or stone.The pancreas appears normal as well. IMPRESSION: 1. Cholelithiasis without evidence of acute cholecystitis. 2. Mild to moderate fatty infiltration of the liver which is enlarged at 18 cm. DICTATED BY: JOSELIN QUACH MD DATE: 05/08/24817 ELECTRONICALLY SIGNED BY: JOSELIN QUACH MD DATE: 05/08/24822 ASSESSMENT: Acute cholecystitis, POA Acute abdominal pain, POA Acute complicated cystitis, POA Hyponatremia, improve Obesity, BMI 28.4 History of cholelithiasis PLAN: Continue to monitor patient on medical/surgical floor. Acute cholecystitis, POA Acute abdominal pain, POA Patient underwent robotic cholecystectomy by Dr. Rudolph this morning. Continue 0.9% NaCl @ 75 ml/hrs. Continue Zosyn 3.375 mg IV Q 8hours. K 3.4 and will be replaced. Ca 7.8, will order albumin and ionized calcium. Acute complicated cystitis, POA Urine culture showed <16060 CFU. Continue IV zosyn. Glucometer checks a.c. and HS with insulin regular sliding scale. Ambulate this evening. Plan for discharge tomorrow if stable. P.r.n. medications for: Pain management, nausea, vomiting, constipation, hypertension. Glucometer checks a.c. and HS with insulin regular sliding scale. Blood pressure checks every 4 hours and as needed. Reconcile home medications once available. DVT and GI prophylaxis: SCDs, continue ambulation and Protonix. ATTESTATION BY PHYSICIAN I have seen and examined the patient. I reviewed the documentation, medical decision making, and treatment plan as noted by the resident provider above. I agree with the findings and plan of care. Ward Sotelo IV, MD, KRUPALI P MD May 10, 2024 10:43
[2024-05-10] MEDS: acetaMINOPHEN 100 ML ONE (11:35)
[2024-05-10] MEDS: FAMOTIDINE 20MG VIAL IV ONE (11:35)
[2024-05-10] MEDS: INDOCYANINE GREEN 25 MG VIAL IJ ONE (11:36)
[2024-05-10 11:44] LABS: ALBUMIN 3.1 g/dL (3.5-5.0)
[2024-05-10 12:52] LABS: INR 1.07 (0.85-1.15); PROTHROMBIN TIME 11.5 SEC (9.6-11.6)
[2024-05-10 12:53] LABS: PARTIAL THROMBOPLASTIN TIME 25.4 SEC (26.3-35.5)
[2024-05-10] MEDS ORDERED: hydroMORPHone 0.5 MG SYG (0.5MG/0.5ML) IVP PRN (13:00)
[2024-05-10] MEDS: oxyCODONE/aceTAMIN 5/325MG TAB PO PRN (13:46)
[2024-05-10] MEDS: TEMAZepam 15 MG CAPSULE PO PRN (22:26)
[2024-05-11 03:42] LABS: BASOPHILS # (AUTO) 0.04 K/uL (0.00-0.20); BASOPHILS % (AUTO) 0.4 % (0.0-5.0); EOSINOPHILS # (AUTO) 0.01 K/uL (0.00-0.70); EOSINOPHILS % (AUTO) 0.1 % (0.0-8.0); HEMATOCRIT 34.3 % (36-48); IMMATURE GRANULOCYTE ABSOLUTE 0.05 K/uL (0-1); LYMPHOCYTES # (AUTO) 1.7 K/uL (1.0-4.8); LYMPHOCYTES % (AUTO) 17.4 % (21.0-51.0); MEAN CORPUSCULAR HEMOGLOBIN 27.5 pg (27.0-33.0); MEAN CORPUSCULAR HGB CONC 32.9 g/dL (32.0-36.0); MEAN CORPUSCULAR VOLUME 83.5 fL (79-99); MONOCYTES # (AUTO) 0.6 K/uL (0.1-1.0); MONOCYTES % (AUTO) 6.2 % (3.0-13.0); NEUTROPHILS # (AUTO) 7.3 K/uL (1.8-7.7); NEUTROPHILS % (AUTO) 75.4 % (40.0-77.0); PLATELET COUNT (AUTO) 328 K/uL (130-400); RED BLOOD CELL COUNT(AUTO) 4.11 MIL/uL (4.00-5.50); RED CELL DISTRIBUTION WIDTH 13.4 % (11.0-15.5); WHITE BLOOD COUNT (AUTO) 9.6 K/uL (4.8-10.8)
[2024-05-11 03:49] VITALS: BP 145/77; PULSE 73; RESP 19; TEMP 97.8
[2024-05-11 04:15] LABS: ALBUMIN 2.9 g/dL (3.5-5.0); BILIRUBIN,TOTAL 0.7 mg/dL (0.2-1.0); CREATININE 0.8 mg/dL (0.5-1.0); MAGNESIUM 1.9 mg/dL (1.80-2.40); POTASSIUM 3.4 mmol/L (3.5-5.1); TOTAL PROTEIN, SERUM 6.8 g/dL (6.0-8.3)
[2024-05-11 07:51] VITALS: BP 115/69; PULSE 69; RESP 20; TEMP 97.7
[2024-05-11 08:22] VITALS: O2SAT 97
[2024-05-11 11:24] VITALS: BP 117/64; PULSE 76; RESP 20; TEMP 98.2
--- NOTE | 2024-05-11 11:35 | DS ---
Discharge Summary Hospital Course Summary: Mrs. Asif is a 49-year-old female significant past medical history of obesity and cholelithiasis who [place] [facility] [place] for evaluation of right upper quadrant pain onset last night. Pain was triggered by fatty and greasy food last night. She started with severe epigastric pain that radiated to her back. On presentation CBC was within normal range. Sodium 134urine analysis was positive for leukocyte esterase. Abdominal ultrasound was obtained which showed moderate suspicion for cholecystitis with multiple gallstones. Patient was treated with IV fluids, morphine IV, Zofran and antibiotic Zosyn IV. Chest x-ray normal. Urine culture showed < 87762 CFU. General surgery consult was obtained. Dr. Rudolph ordered HIDA scan which showed hepatobiliary scan. Patient had a similar complaint in the past. Dr. Rudolph decided to go for the surgery and performed robotic cholecystectomy on 04/09/24 without any complications. On findings, he found very enlarged tense gallbladder inflammatory adhesions. After surgery patient tolerated regular diet well, has been ambulating, had a bowel movement after surgery. Her vitals have been stable. Her pain score is 2. Today on 05/11/24, her K is 3.4 and replaced it with 40 mEQ PO and she is clinically stable for discharge today. Tramadol prescription will be given as needed for pain. Patient is recommended to follow up with PCP in 3-[address] Rudolph in 2 weeks upon discharge. Supervisor Sewer Maintenance(s): General Surgeon : Dr. Rudolph Procedure(s): [facility] [address] [address] OP Procedure: Robotic Mariah OP Procedure Note OPERATIVE PROCEDURE NOTE DATE OF SERVICE: May 10, 2024 PREOPERATIVE DIAGNOSIS: Acute cholecystitis PROCEDURES PREFORMED: 1. Robotic Cholecystectomy SURGEON: Ronni Whitney MD ANESTHESIA: General. ESTIMATED BLOOD LOSS: Minimal. SPECIMEN(S) REMOVED: Gallbladder. FINDINGS: Very enlarged tense gallbladder moderate right upper quadrant inflammatory adhesions COMPLICATIONS: None. [facility] [address] [place] [id number] IMAGING REPORT Signed PATIENT: WANG ASIF MR#: [id number] : 1975 SEX: F AGE: 49 LOCATION: 4DH ORDER 56 [facility]US: [facility] REPORT#: [id number] SERVICE 54 REASON: Adominal Pain ORDERING PHYSICIAN: PILO COELHO MD PROCEDURE: ABDRUQLTD - US ABDOMINAL RUQ\LTD US ABDOMINAL RUQ\E\LTD HISTORY: Adominal Pain COMPARISON: None FINDINGS: There is mild fatty infiltration of the liver. There are no focal liver masses. The liver is mildly enlarged at 18 cm.There are stones present within the gallbladder. There is no wall thickening or edema. Common duct is normal at 3 mm.. Right kidney is normal with no evidence of mass, hydronephrosis or stone.The pancreas appears normal as well. IMPRESSION: 1. Cholelithiasis without evidence of acute cholecystitis. 2. Mild to moderate fatty infiltration of the liver which is enlarged at 18 cm. DICTATED BY: JOSELIN QUACH MD DATE: 05/08/24817 ELECTRONICALLY SIGNED BY: JOSELIN QUACH MD DATE: 05/08/24822 [place] [address] [place] [address] IMAGING REPORT Signed PATIENT: WANG ASIF MR#: [id number] : 1975 SEX: F AGE: 49 LOCATION: 4DH ORDER 56 STATUS: ADM IN REPORT#: [id number] SERVICE 54 REASON: SOB ORDERING PHYSICIAN: PILO COELHO MD PROCEDURE: CXR1VW - CHEST 1VW CHEST 1VW REASON: SOB COMPARISON: None. FINDINGS: Single view of the chest was obtained. Lungs are clear. Heart size is normal. There is no pulmonary vascular congestion. Mediastinum and bony thorax appear unremarkable. IMPRESSION: 1. Normal single view chest x-ray. DICTATED BY: JOSELIN QUACH MD DATE: 05/08/24927 ELECTRONICALLY SIGNED BY: JOSELIN QUACH MD DATE: 05/08/24929 [place] [address] [place] [address] IMAGING REPORT Signed PATIENT: WANG ASIF MR#: [id number] : 1975 SEX: F AGE: 49 LOCATION: 4DH ORDER 0844 STATUS: ADM IN REPORT#: [id number] SERVICE 0841 REASON: CHOLECYSTITIS ORDERING PHYSICIAN: RONNI WHITNEY MD PROCEDURE: HIDAWO - NM HIDA WO EF/CCK NM HIDA WO EF/CCK REASON: CHOLECYSTITIS COMPARISON: None TECHNIQUE: Images were acquired following injection of 6.5 mCi technetium 99m Choletec. FINDINGS: There is prompt hepatic parenchymal uptake. There is prompt excretion into the common duct and gallbladder. There is near complete clearing of hepatic activity by one hour. IMPRESSION: 1. Normal hepatobiliary scan. DICTATED BY: JOSELIN QUACH MD DATE: 05/08/241949 ELECTRONICALLY SIGNED BY: JOSELIN QUACH MD DATE: 05/08/241952 RUN DATE: 05/09/24 [facility] [address] 1 RUN TIME: [address] [address] Department of Laboratories [place] # [id number] Label Stitcher: Ovi Man DO Specimen Report PATIENT: WANG ASIF ACCT: [id number] LOC: 4DH U: [id number] AGE/SX: 49/F ROOM: 423 RE05/07/[address]: PATTY BATES MD : 1975 BED: 1 DIS: STATUS: ADM IN TLOC: SPEC: [id number] ROMEO: 05/07/24 STATUS: COMP REQ: [id number] RECD: 05/08/24- [facility] DR: PILO COELHO MD SOURCE: URINE CC ENTR: 05/07/[address] [facility] [address]: SELF,REFERRAL [facility]: ORDERED: URINE CULTURE Procedure Result Kiya Date-Time URINE CULTURE Final 05/09/24 REPORT URINE <=10,000 CFU Assessment/Plan: ASSESSMENT: Robotic Cholecystectomy on 05/11/24 Acute cholecystitis, POA Acute abdominal pain, POA Acute complicated cystitis, POA Hyponatremia, improve Obesity, BMI 28.4 History of cholelithiasis Discharge Instructions: ADMISSION DATE : 05/08/24 DISCHARGE DATE : 05/11/24 DISPOSITION : Home CONDITION : Stable Supervisor Sewer Maintenance(s) : General Surgeon : Dr. Rudolph FOLLOW UP APPOINTMENTS : Patient to follow-up with the PCP within 3-5 days and general surgeon Dr[address] Rudolph upon discharge. PROCEDURES : Report attached to summary : Operative note robotic cholecystectomy IMAGING (s) : Report attached to summary : Chest x-ray, abdominal ultrasound and HIDA scan MICROBIOLOGY : Report attached to summary. Urine culture ACTIVITY : ab baljeet HOME MEDICATIONS : Continue NEW MEDICATIONS : Tramadol paper prescription TEACHING : We reinforced the importance of medication compliance and with follow up appointments. Advised patient to follow-up with the PCP within 3-[address] Rudolph upon discharge. Emergency instructions : The patient was instructed to present to the nearest Emergency Department or call 911 should their symptoms return or worsen. Time spent arranging discharge: 1-30 minutes ATTESTATION BY PHYSICIAN I have seen and examined the patient. I reviewed the documentation, medical decision making, and treatment plan as noted by the resident provider above. I agree with the findings and plan of care. Patty Bates MD, KRUPALI P MD May 11, 2024 11:35
[2024-05-11] MEDS: PoTASSium chloRIDE 20MEQ ER 20 MEQ ERTAB PO ONE (11:38)
== END 2024-05-11 12:44 | disposition home or self-care (01) | DRG 415 ==
LOC: EDH 23:19 → EDHIP 23:20 → 4DH 05-08 04:28
PROVIDERS: ADMIT Hospitalist; ATTEND Hospitalist
PROC: 8E0W0CZ Robotic Assisted Procedure of Trunk Region, Open Approach (ICD-10-PCS; 2024-05-10)
PROC: 0FT40ZZ Resection of Gallbladder, Open Approach (ICD-10-PCS; principal; 2024-05-10 08:45)
DX: K80.00 Calculus of gallbladder with acute cholecystitis without obstruction (principal); E87.1 Hypo-osmolality and hyponatremia; N30.00 Acute cystitis without hematuria; K76.0 Fatty (change of) liver, not elsewhere classified; I10 Essential (primary) hypertension; K82.8 Other specified diseases of gallbladder; K59.00 Constipation, unspecified; E66.9 Obesity, unspecified; Z68.28 Body mass index [BMI] 28.0-28.9, adult; Z82.49 Family history of ischemic heart disease and other diseases of the circulatory system; Z83.3 Family history of diabetes mellitus; Z98.891 History of uterine scar from previous surgery
CPT/HCPCS: 36415; 71045; 76705; 78226; 80048; 80053; 80076; 81001; 81025; 82040; 82150; 82330; 82948; 83690; 83735; 84295; 85025; 85027; 85610; 85730; 86850; 86900; 86901; 87086; 96375; 99285; A4450; A9537; G0378; J0171; J1100; J1815; J1885; J2003; J2175; J2270; J2405; J2470; J2543; J2704; J2710; J3010; J3490; J7030; J7070; J7120; A4216; A4222; A4223; A4600; A4649; A4930; C1769; J0665